=== PATIENT | female | born 1945 | race Caucasian/White ===

== ENCOUNTER 2020-06-05 12:46 | Day surgery (SDC) | payer MEDICARE, SELFPAY ==
--- NOTE | 2020-06-02 14:24 | HO.ANESPROP2 ---
Documented by User: Denia Mendiola 06/02/20 14:28 HPI - Anesthesia Eval Consult details Narrative: 74yo F for Upper Endoscopy with Balloon Dilitation PMFSH Past Medical History Medical History Cholecystectomy planned Chronic gastritis Dysphagia Erosive esophagitis GERD (gastroesophageal reflux disease) Normal colonoscopy Rheumatoid arthritis Urinary bladder incontinence Surgical History Surgical History History of esophagogastroduodenoscopy (EGD) S/P hip replacement Social History Social History Smoking Status: Former smoker Smoking Quit Date: 2013 Advance Directives: No Advance Directives Information Provided: Yes Meds Allergies Allergy/AdvReac Type Severity Reaction Status Date / Time azithromycin [AZITHROMYCIN] Allergy Intermediate RASH Unverified 04/13/20 16:01 Home Medications Medication Instructions Recorded Confirmed Type acetaminophen 500 mg PO QD-QID PRN 06/02/20 06/02/20 History sulfasalazine 1 tab PO DAILY 06/02/20 06/02/20 History Exam Exam Date and Time: June 02, 2020 1424 Documented by User: Rosalio Reeves 06/05/20 13:05 PMFSH Past Medical History Medical History Cholecystectomy planned Chronic gastritis Dysphagia Erosive esophagitis GERD (gastroesophageal reflux disease) Normal colonoscopy Rheumatoid arthritis Urinary bladder incontinence Surgical History Surgical History History of esophagogastroduodenoscopy (EGD) S/P hip replacement Social History Social History Smoking Status: Former smoker Smoking Quit Date: 2013 Advance Directives: No Advance Directives Information Provided: Yes Meds Allergies Allergy/AdvReac Type Severity Reaction Status Date / Time azithromycin [AZITHROMYCIN] Allergy Intermediate RASH Unverified 04/13/20 16:01 Home Medications Medication Instructions Recorded Confirmed Type acetaminophen 500 mg PO QD-QID PRN 06/02/20 06/02/20 History sulfasalazine 1 tab PO DAILY 06/02/20 06/02/20 History Exam Airway Mallampati Class: III TM Dist: >3cm Neck ROM: Full Denture: Upper and Lower Heart: [id number] Lungs: cta b/l Assessment and Plan Assessment Anesthesia Assessment: Anesthesia Plan Discussed, PAT Visit and Chart Reviewed Final Anesthetic Review NPO: Yes ASA Class: III Final Preanesthetic Review: No Changes in Pt Med Stat, Meds/Allgs Chart Reviewed, Consent Obtained/Reviewed and Anes Risks/Benef Reviewed Patient Risk: Low Procedure Risk: Low Assessment/Block/Sedation in SS: Assess/Block/Sedation-SS Anesthetic Plan Anesthetic Plan: MAC: Disposition: Standard PACU
[2020-06-02 14:50] VITALS: BMI 22.7
[2020-06-05 13:02] VITALS: BP 126/71; PULSE 102; RESP 18; TEMP 36.1; O2SAT 98
[2020-06-05] MEDS: Lactated Ringers 1,000 ML 100 ML IVCONT (13:08)
[2020-06-05 14:33] VITALS: BP 126/48; PULSE 91; RESP 20; TEMP 36.5; O2SAT 97
--- NOTE | 2020-06-05 14:39 | PM.OP ---
Brief Operative Note Date of procedure: 06/05/20 Pre-op diagnosis: GERD, Dysphagia, Screening Post-op diagnosis: other (Hiatal hernia, gastritis, Minimal distal esophageal stricture, colon polyp, diverticulosis, internal hemorrhoids) Procedure: EGD with biopsy and Balloon dilation, Colonoscopy to cecum with biopsy Surgeon: Sid Awan Anesthesia: MAC Estimated blood loss (mL): 4.0 Pathology: other (A. Gastric antrum B. EG JUnction at 38cm C.Transverse colon polyp) Condition: stable Disposition: PACU
[2020-06-05 14:48] VITALS: BP 127/50; PULSE 89; RESP 16; O2SAT 97
[2020-06-05 15:00] VITALS: BP 103/53; PULSE 86; RESP 16; O2SAT 95
[2020-06-05 15:21] VITALS: BP 122/64; PULSE 85; RESP 16; O2SAT 95
--- NOTE | 2020-06-05 15:47 | HO.POSTANES ---
Post Anesthesia Evaluation Post Anesthesia Evaluation Vital Signs: Vital Signs Temp Pulse Resp BP Pulse Ox 06/05/20 15:21 97.7 F 85 16 122/64 95 06/05/20 15:00 86 16 103/53 L 95 06/05/20 14:33 97.7 F 91 20 126/48 L 97 06/05/20 13:02 97 F 102 H 18 126/71 98 Anesthesia: Monitored Mental Status: Awake Pain Control: Satisfactory Nausea/Vomiting: None Hydration: Adequate Anesthesia-Related Issues: No Anes. Related Issues
--- NOTE | 2020-06-05 17:11 | OP_ITS ---
SURGEON: Sid Awan MD INDICATIONS: The patient presents for evaluation of gastroesophageal reflux, dysphagia, and colorectal cancer screening. Full consent has been obtained from her for this, including risks of bleeding and perforation. PREOPERATIVE DIAGNOSIS: POSTOPERATIVE DIAGNOSIS: PROCEDURE PERFORMED: ESTIMATED BLOOD LOSS: COMPLICATIONS: ANESTHESIA: Monitored anesthesia care. ASSISTANTS: SPECIMENS: PREOPERATIVE DIAGNOSES: Gastroesophageal reflux, dysphagia, colorectal cancer screening. POSTOPERATIVE DIAGNOSES: Gastroesophageal reflux, dysphagia, colorectal cancer screening, hiatal hernia, gastritis, minimal distal esophageal stricture, colon polyp, diverticulosis and internal hemorrhoids. DESCRIPTION OF PROCEDURE: The patient was placed in the left lateral decubitus position. The Olympus video gastroscope was passed in the posterior oropharynx and upper esophagus under direct vision. The scope was passed slowly into the distal esophagus. The gastroesophageal junction appeared at 38 cm. There was some slight irregularity, but no definitive evidence of Ferreira's esophagus nor esophagitis. With insufflation of air, there appeared to be perhaps a mild fibrotic stricture, but not obstructing at all. The scope was easily entered into the stomach. There was a small hiatal hernia. The scope was advanced to pylorus and duodenum cannulated the descending portion. The duodenum including the bulb appeared normal without mass or ulceration. The scope was withdrawn back into the stomach. The gastric antrum and body had changes of a chronic gastritis with some edema, friability, and erythema. There were no erosions or ulceration. There was good peristalsis. The scope was retroflexed visualizing the proximal stomach carefully which appeared normal, without any sign of mass or ulceration. The scope was straightened. Biopsies were obtained from the gastric antrum. The scope was withdrawn back into the esophagus. Given her symptomatology, I did use a [employer] esophageal balloon to dilate the gastroesophageal junction from 18 mm to 19 mm for 30 seconds each of the recommended pressure. There was some heme noted post dilation. Biopsies were obtained at the EG junction at 38 cm as well. Proximal to that, the esophageal mucosa appeared normal. The scope was withdrawn from the patient. She was turned around for colonoscopy. The digital rectal exam revealed no abnormalities. The Olympus video pediatric colonoscope was entered into the rectum and advanced easily to the cecum. Once in the cecum, I did identify normal-appearing cecal pouch with appendiceal orifice and a normal-appearing ileocecal valve. There was transillumination of light deep in the right lower quadrant. The entire cecum and ileocecal valve appeared normal. The scope was slowly withdrawn assessing all mucosal surfaces carefully. Preparation was excellent. In the transverse colon, was a flat approximately 5 mm polyp, which was biopsied and completely removed with cold biopsy forceps. I did not visualize any other polyps, colitis, nor angiodysplasia. There was a mild amount of sigmoid diverticulosis. In the rectum, scope was retroflexed visualizing small internal hemorrhoids, but no other pathology. The rectal mucosa appeared normal. The scope was straightened out and withdrawn from the patient. She tolerated both procedures well and was returned to the recovery area in stable condition. IMPRESSION: 1. Hiatal hernia, gastroesophageal reflux. 2. Minimal distal esophageal stricture. 3. Gastritis. 4. Colon polyp. 5. Diverticulosis. 6. Internal hemorrhoids. PLAN: The results of biopsies will be checked. Given the minimal findings on the colonoscopy and her age, I do not think she will need any further screening colonoscopies in the future. She will be started on omeprazole 20 mg daily to treat any component of reflux and esophageal spasm contributing to her dysphagia. She was advised to see me in several months for a followup visit. She was advised not to use any aspirin and NSAIDs for 1 week. PROCEDURES PERFORMED: Esophagogastroduodenoscopy with balloon dilation of gastroesophageal junction and biopsies, and colonoscopy to the cecum with biopsy and removal of polyp. MD VALE Noyola/TANK / [id number]
== END 2020-06-05 15:48 | disposition home or self-care (01) ==
PROVIDERS: PCP Internal Medicine Medical Oncology; Visit Provider Internal Medicine
PROC: (CPT 45380; principal; 2020-06-05 14:20)
PROC: 0DJD8ZZ Inspection of Lower Intestinal Tract, Via Natural or Artificial Opening Endoscopic (ICD-10-PCS; CPT 45378; 2020-06-05 14:20)
DX: Z12.11 Encounter for screening for malignant neoplasm of colon (principal); D12.3 Benign neoplasm of transverse colon; K57.30 Diverticulosis of large intestine without perforation or abscess without bleeding; K64.8 Other hemorrhoids; R13.14 Dysphagia, pharyngoesophageal phase; K22.2 Esophageal obstruction; K20.0 Eosinophilic esophagitis; K29.50 Unspecified chronic gastritis without bleeding; B96.81 Helicobacter pylori [H. pylori] as the cause of diseases classified elsewhere; K44.9 Diaphragmatic hernia without obstruction or gangrene; M06.9 Rheumatoid arthritis, unspecified; Z79.899 Other long term (current) drug therapy; Z96.641 Presence of right artificial hip joint; Z87.891 Personal history of nicotine dependence; Z90.49 Acquired absence of other specified parts of digestive tract; Z88.1 Allergy status to other antibiotic agents
CPT/HCPCS: 45380; 43249; 43239; 88305; 88342; C1726

== ENCOUNTER 2020-10-09 08:13 | Outpatient (REF) | payer MEDICARE, SELFPAY ==
[2020-10-09 08:52] LABS: MANUAL DIFF FLAG NO
[2020-10-09 08:58] LABS: Basophils Percent Auto 0.9 % (0-2); Eosinophils Absolute Auto 0.2 X10*3/uL (0.0-0.4); Eosinophils Percent Auto 4.5 % (0-4); Hematocrit 41.9 % (37-47); Hemoglobin 13.4 g/dl (12.0-16.0); Imm Gran Abs Auto 0.01 X10*3/uL (0.00-0.03); Imm Gran Pct Auto 0.2 % (0.0-0.4); Lymphocytes Absolute Auto 1.2 X10*3/uL (1.2-4.9); Lymphocytes Percent Auto 26.8 % (20-40); Mean Corpuscular Hemoglobin 28.8 pg (27.0-33.0); Mean Corpuscular Volume 89.9 fL (80-98); Mean Platelet Volume 9.3 fL (9.4-12.3); Monocytes Absolute Auto 0.3 X10*3/uL (0.1-1.2); Monocytes Percent Auto 5.6 % (2-11); Neutrophils Absolute Auto 2.9 X10*3/uL (2.0-8.3); Platelet Count 247 X10*3/uL (160-400); Red Blood Count 4.66 X10*6/uL (4.20-5.50); White Blood Count 4.6 X10*3/uL (4.8-10.8)
[2020-10-09 09:21] LABS: Cholesterol 180 mg/dL; HDL Cholesterol 60 mg/dL; LDL Cholesterol Calculated 106 mg/dl; Triglycerides 73 mg/dL
[2020-10-09 09:34] LABS: Alanine Aminotransferase 14 U/L (0-31); Albumin Level 4.3 g/dL (3.5-5.0); Alkaline Phosphatase 80 U/L (39-117); Anion Gap 12 (12-20); Aspartate Amino Transferase 16 U/L (5-31); Bilirubin Total 0.9 mg/dL (0.0-1.0); Blood Urea Nitrogen 19 mg/dL (9-16); C Reactive Protein 0.54 mg/dL (< or = 0.50); Calcium 9.5 mg/dL (8.4-10.2); Carbon Dioxide 27 mmol/L (22-29); Chloride 105 mmol/L (96-108); Estimated Glomerular Filt Rate > 60; Glucose Random 103 mg/dL (60-115); Potassium 4.3 mmol/L (3.3-5.1); Sodium 140 mmol/L (135-145); Total Protein 6.9 g/dL (6.5-8.0)
[2020-10-09 10:15] LABS: Erythrocyte Sedimentation Rate 7 MM/HR (0-20)
[2020-10-13 12:46] LABS: Vitamin D 25-OH, D2 <4 ng/mL; Vitamin D 25-OH, D3 32 ng/mL; Vitamin D 25-OH, Total 32 ng/mL (30-100)
== END 2020-10-09 08:14 | disposition home or self-care (01) ==
LOC: HO.LAB 08:13
PROVIDERS: Absent Provider Student in an Organized Health Care Education/Training Program; PCP Internal Medicine Medical Oncology; Visit Provider Internal Medicine Medical Oncology
DX: M05.9 Rheumatoid arthritis with rheumatoid factor, unspecified (principal); M19.90 Unspecified osteoarthritis, unspecified site; D70.9 Neutropenia, unspecified; Z87.898 Personal history of other specified conditions
CPT/HCPCS: 36415; 80053; 80061; 82306; 85025; 85652; 86140

== ENCOUNTER 2020-11-03 14:54 | Outpatient (REF) | payer MEDICARE, SELFPAY ==
[2020-11-03 15:09] LABS: Glucose Urine UA NEG (NEG); Leukocyte Esterase Urine 2+ (NEG); Nitrite Urine POS (NEG); PH 5.5 (5.0-8.0); Specific Gravity - Urine >= 1.030 (1.005-1.025); Urine Blood 1+ (NEG); Urine Ketones NEG (NEG); Urine Protein NEG (NEG-TRACE)
[2020-11-03 15:10] LABS: Appearance Urine CLOUDY; Color Urine YELLOW
[2020-11-03 15:25] LABS: Bacteria Urine 3+ /LPF; WBC Urine TNTC /HPF (0-4)
== END 2020-11-03 14:55 | disposition home or self-care (01) ==
LOC: HO.LNP 14:54
PROVIDERS: Visit Provider Internal Medicine Medical Oncology
DX: M19.90 Unspecified osteoarthritis, unspecified site (principal); R31.9 Hematuria, unspecified
CPT/HCPCS: 81001; 81003; 87086; 87088; 87186

== ENCOUNTER 2020-11-07 08:18 | Outpatient (REF) | payer MEDICARE, SELFPAY ==
--- NOTE | ~2020-11-07 | XR_ITS ---
EXAMINATION: BILATERAL KNEE X-RAY CLINICAL INFORMATION: Rheumatoid arthritis COMPARISON: Previous exam November 2017 TECHNIQUE: 4 views of each knee FINDINGS: Right: The bones are osteopenic. No fracture or dislocation is seen. There are small osteophytes at the patellofemoral joint. Joint spaces are otherwise normal. There is a small joint effusion. Left knee: The bones are osteopenic. No fracture or dislocation is seen. There are small osteophytes at the patellofemoral joint. Joint spaces are otherwise normal. There is a small joint effusion. XR/XR knee LT 3V IMPRESSION: Osteopenia. Small osteophytes at the patellofemoral joint. Bilateral joint effusions.
--- NOTE | ~2020-11-07 | XR_ITS ---
EXAMINATION: BILATERAL KNEE X-RAY CLINICAL INFORMATION: Rheumatoid arthritis COMPARISON: Previous exam November 2017 TECHNIQUE: 4 views of each knee FINDINGS: Right: The bones are osteopenic. No fracture or dislocation is seen. There are small osteophytes at the patellofemoral joint. Joint spaces are otherwise normal. There is a small joint effusion. Left knee: The bones are osteopenic. No fracture or dislocation is seen. There are small osteophytes at the patellofemoral joint. Joint spaces are otherwise normal. There is a small joint effusion. XR/XR knee RT 3V IMPRESSION: Osteopenia. Small osteophytes at the patellofemoral joint. Bilateral joint effusions.
[2020-11-07 09:37] LABS: MANUAL DIFF FLAG NO
[2020-11-07 09:49] LABS: Basophils Percent Auto 0.6 % (0-2); Eosinophils Absolute Auto 0.2 X10*3/uL (0.0-0.4); Eosinophils Percent Auto 3.3 % (0-4); Hematocrit 39.7 % (37-47); Hemoglobin 12.9 g/dl (12.0-16.0); Imm Gran Abs Auto 0.01 X10*3/uL (0.00-0.03); Imm Gran Pct Auto 0.2 % (0.0-0.4); Lymphocytes Absolute Auto 1.1 X10*3/uL (1.2-4.9); Lymphocytes Percent Auto 21.8 % (20-40); Mean Corpuscular HGB Conc 32.5 g/dl (31.0-35.0); Mean Corpuscular Hemoglobin 29.2 pg (27.0-33.0); Mean Corpuscular Volume 89.8 fL (80-98); Mean Platelet Volume 9.4 fL (9.4-12.3); Monocytes Absolute Auto 0.3 X10*3/uL (0.1-1.2); Monocytes Percent Auto 6.2 % (2-11); Neutrophils Absolute Auto 3.5 X10*3/uL (2.0-8.3); Neutrophils Percent Auto 67.9 % (45-73); Platelet Count 246 X10*3/uL (160-400); Red Blood Count 4.42 X10*6/uL (4.20-5.50); White Blood Count 5.1 X10*3/uL (4.8-10.8)
[2020-11-07 10:09] LABS: Alanine Aminotransferase 13 U/L (0-31); Albumin Level 4.2 g/dL (3.5-5.0); Alkaline Phosphatase 82 U/L (39-117); Anion Gap 12 (12-20); Aspartate Amino Transferase 17 U/L (5-31); Bilirubin Total 0.8 mg/dL (0.0-1.0); Blood Urea Nitrogen 19 mg/dL (9-16); Calcium 9.8 mg/dL (8.4-10.2); Carbon Dioxide 26 mmol/L (22-29); Chloride 106 mmol/L (96-108); Estimated Glomerular Filt Rate > 60; Glucose Random 98 mg/dL (60-115); Potassium 4.4 mmol/L (3.3-5.1); Sodium 140 mmol/L (135-145); Total Protein 6.8 g/dL (6.5-8.0)
[2020-11-07 10:54] LABS: Erythrocyte Sedimentation Rate 6 MM/HR (0-20)
== END 2020-11-07 08:19 | disposition home or self-care (01) ==
LOC: HO.LAB 08:18
PROVIDERS: PCP Emergency Medicine; Visit Provider Student in an Organized Health Care Education/Training Program
DX: M05.9 Rheumatoid arthritis with rheumatoid factor, unspecified (principal); M85.80 Other specified disorders of bone density and structure, unspecified site; Z79.899 Other long term (current) drug therapy
CPT/HCPCS: 36415; 73562; 80053; 85025; 85652; 86140; 99212

== ENCOUNTER 2021-02-01 08:22 | Outpatient (REF) | payer MEDICARE, SELFPAY ==
[2021-02-01 08:49] LABS: MANUAL DIFF FLAG NO
[2021-02-01 08:53] LABS: Basophils Percent Auto 0.6 % (0-2); Eosinophils Absolute Auto 0.2 X10*3/uL (0.0-0.4); Eosinophils Percent Auto 4.2 % (0-4); Hematocrit 38.1 % (37-47); Hemoglobin 12.3 g/dl (12.0-16.0); Imm Gran Abs Auto 0.01 X10*3/uL (0.00-0.03); Imm Gran Pct Auto 0.2 % (0.0-0.4); Lymphocytes Absolute Auto 1.2 X10*3/uL (1.2-4.9); Lymphocytes Percent Auto 26.1 % (20-40); Mean Corpuscular HGB Conc 32.3 g/dl (31.0-35.0); Mean Corpuscular Volume 89.9 fL (80-98); Mean Platelet Volume 9.1 fL (9.4-12.3); Monocytes Absolute Auto 0.3 X10*3/uL (0.1-1.2); Monocytes Percent Auto 6.8 % (2-11); Neutrophils Absolute Auto 2.9 X10*3/uL (2.0-8.3); Neutrophils Percent Auto 62.1 % (45-73); Platelet Count 213 X10*3/uL (160-400); Red Blood Count 4.24 X10*6/uL (4.20-5.50); Red Cell Distribution Width 12.8 % (11.0-16.0); White Blood Count 4.7 X10*3/uL (4.8-10.8)
[2021-02-01 09:39] LABS: Alanine Aminotransferase 13 U/L (0-31); Albumin Level 4.1 g/dL (3.5-5.0); Alkaline Phosphatase 79 U/L (39-117); Anion Gap 12 (12-20); Aspartate Amino Transferase 15 U/L (5-31); Bilirubin Total 0.9 mg/dL (0.0-1.0); Blood Urea Nitrogen 14 mg/dL (9-16); C Reactive Protein 0.15 mg/dL (< or = 0.50); Calcium 9.7 mg/dL (8.4-10.2); Carbon Dioxide 26 mmol/L (22-29); Chloride 108 mmol/L (96-108); Estimated Glomerular Filt Rate > 60; Glucose Random 109 mg/dL (60-115); Potassium 4.3 mmol/L (3.3-5.1); Sodium 142 mmol/L (135-145); Total Protein 6.8 g/dL (6.5-8.0)
[2021-02-01 09:50] LABS: Erythrocyte Sedimentation Rate 6 MM/HR (0-20)
== END 2021-02-01 08:23 | disposition home or self-care (01) ==
LOC: HO.LAB 08:22
PROVIDERS: PCP Internal Medicine Medical Oncology; Visit Provider Student in an Organized Health Care Education/Training Program
DX: M05.9 Rheumatoid arthritis with rheumatoid factor, unspecified (principal)
CPT/HCPCS: 36415; 80053; 85025; 85652; 86140

== ENCOUNTER → 2021-02-06 10:45 | Outpatient (BNVA) | payer MEDICARE, SELFPAY | PROVIDERS: PCP Internal Medicine Medical Oncology; Visit Provider Student in an Organized Health Care Education/Training Program | DX: M05.9 Rheumatoid arthritis with rheumatoid factor, unspecified (principal); M85.80 Other specified disorders of bone density and structure, unspecified site | CPT/HCPCS: 99212 ==

== ENCOUNTER 2021-06-04 12:26 | Outpatient (REF) | payer MEDICARE, SELFPAY ==
[2021-06-04 13:35] LABS: MANUAL DIFF FLAG NO
[2021-06-04 14:42] LABS: Basophils Percent Auto 0.7 % (0-2); Eosinophils Absolute Auto 0.3 X10*3/uL (0.0-0.4); Eosinophils Percent Auto 5.1 % (0-4); Hematocrit 41.1 % (37.0-47.0); Hemoglobin 13.2 g/dl (12.0-16.0); Imm Gran Abs Auto 0.01 X10*3/uL (0.00-0.03); Imm Gran Pct Auto 0.2 % (0.0-0.4); Lymphocytes Absolute Auto 1.4 X10*3/uL (1.2-4.9); Lymphocytes Percent Auto 25.7 % (20-40); Mean Corpuscular HGB Conc 32.1 g/dl (31.0-35.0); Mean Corpuscular Hemoglobin 28.4 pg (27.0-33.0); Mean Corpuscular Volume 88.6 fL (80.0-98.0); Mean Platelet Volume 9.5 fL (9.4-12.3); Monocytes Absolute Auto 0.4 X10*3/uL (0.1-1.2); Monocytes Percent Auto 6.4 % (2-11); Neutrophils Absolute Auto 3.4 x10*3/uL (2.0-8.3); Neutrophils Percent Auto 61.9 % (45-73); Platelet Count 226 X10*3/uL (160-400); Red Blood Count 4.64 X10*6/uL (4.20-5.50); Red Cell Distribution Width 13.1 % (11.0-16.0); White Blood Count 5.5 X10*3/uL (4.8-10.8)
[2021-06-04 15:12] LABS: Alanine Aminotransferase 17 U/L (0-31); Albumin Level 4.3 g/dL (3.5-5.0); Alkaline Phosphatase 79 U/L (39-117); Anion Gap 13 (12-20); Aspartate Amino Transferase 17 U/L (5-31); Bilirubin Total 0.9 mg/dL (0.0-1.0); Blood Urea Nitrogen 20 mg/dL (9-16); C Reactive Protein 0.19 mg/dL (< or = 0.50); Calcium 10.2 mg/dL (8.4-10.2); Carbon Dioxide 27 mmol/L (22-29); Chloride 106 mmol/L (96-108); Estimated Glomerular Filt Rate > 60; Glucose Random 94 mg/dL (60-115); Potassium 4.8 mmol/L (3.3-5.1); Sodium 141 mmol/L (135-145); Total Protein 6.9 g/dL (6.5-8.0)
[2021-06-04 15:27] LABS: Erythrocyte Sedimentation Rate 6 MM/HR (0-20)
== END 2021-06-04 12:27 | disposition home or self-care (01) ==
LOC: HO.LAB 12:26
PROVIDERS: Absent Provider Student in an Organized Health Care Education/Training Program; PCP Internal Medicine Medical Oncology; Visit Provider Nurse Practitioner Family
DX: M05.9 Rheumatoid arthritis with rheumatoid factor, unspecified (principal); M85.80 Other specified disorders of bone density and structure, unspecified site
CPT/HCPCS: 36415; 80053; 85025; 85652; 86140; 99212

== ENCOUNTER → 2021-10-25 10:31 | Outpatient (BNVA) | payer MEDICARE, SELFPAY | PROVIDERS: PCP Internal Medicine Medical Oncology; Visit Provider Nurse Practitioner Family | DX: M05.9 Rheumatoid arthritis with rheumatoid factor, unspecified (principal); M85.80 Other specified disorders of bone density and structure, unspecified site | CPT/HCPCS: 99212 ==

== ENCOUNTER 2021-10-31 12:36 | Outpatient (REF) | payer MEDICARE, SELFPAY ==
[2021-10-31 12:56] LABS: MANUAL DIFF FLAG NO
[2021-10-31 13:06] LABS: Basophils Percent Auto 0.4 % (0-2); Eosinophils Absolute Auto 0.2 X10*3/uL (0.0-0.4); Eosinophils Percent Auto 3.3 % (0-4); Hematocrit 39.4 % (37.0-47.0); Hemoglobin 12.7 g/dl (12.0-16.0); Imm Gran Abs Auto 0.02 X10*3/uL (0.00-0.03); Imm Gran Pct Auto 0.4 % (0.0-0.4); Lymphocytes Absolute Auto 1.1 X10*3/uL (1.2-4.9); Lymphocytes Percent Auto 22.4 % (20-40); Mean Corpuscular HGB Conc 32.2 g/dl (31.0-35.0); Mean Corpuscular Hemoglobin 28.8 pg (27.0-33.0); Mean Corpuscular Volume 89.3 fL (80.0-98.0); Mean Platelet Volume 9.5 fL (9.4-12.3); Monocytes Absolute Auto 0.3 X10*3/uL (0.1-1.2); Monocytes Percent Auto 6.1 % (2-11); Neutrophils Absolute Auto 3.2 x10*3/uL (2.0-8.3); Neutrophils Percent Auto 67.4 % (45-73); Platelet Count 213 X10*3/uL (160-400); Red Blood Count 4.41 X10*6/uL (4.20-5.50); Red Cell Distribution Width 12.7 % (11.0-16.0); White Blood Count 4.8 X10*3/uL (4.8-10.8)
[2021-10-31 13:28] LABS: Alanine Aminotransferase 11 U/L (0-31); Albumin Level 4.2 g/dL (3.5-5.0); Alkaline Phosphatase 72 U/L (39-117); Anion Gap 11 (12-20); Aspartate Amino Transferase 13 U/L (5-31); Bilirubin Total 0.9 mg/dL (0.0-1.0); Blood Urea Nitrogen 17 mg/dL (9-16); C Reactive Protein 0.34 mg/dL (< or = 0.50); Calcium 9.8 mg/dL (8.4-10.2); Carbon Dioxide 25 mmol/L (22-29); Chloride 106 mmol/L (96-108); Estimated Glomerular Filt Rate 58; Glucose Random 115 mg/dL (60-115); Potassium 4.2 mmol/L (3.3-5.1); Sodium 138 mmol/L (135-145); Total Protein 6.8 g/dL (6.5-8.0)
[2021-10-31 13:47] LABS: Erythrocyte Sedimentation Rate 7 MM/HR (0-20)
== END 2021-10-31 12:37 | disposition home or self-care (01) ==
LOC: HO.LAB 12:36
PROVIDERS: PCP Internal Medicine Medical Oncology; Visit Provider Nurse Practitioner Family
DX: M05.9 Rheumatoid arthritis with rheumatoid factor, unspecified (principal)
CPT/HCPCS: 36415; 80053; 82306; 85025; 85652; 86140

== ENCOUNTER 2021-11-12 13:13 | Outpatient (REF) | payer MEDICARE, SELFPAY ==
[2021-11-12 13:25] LABS: MANUAL DIFF FLAG NO
[2021-11-12 14:08] LABS: Basophils Percent Auto 0.6 % (0-2); Eosinophils Absolute Auto 0.3 X10*3/uL (0.0-0.4); Eosinophils Percent Auto 4.9 % (0-4); Hematocrit 40.4 % (37.0-47.0); Hemoglobin 12.9 g/dl (12.0-16.0); Imm Gran Abs Auto 0.01 X10*3/uL (0.00-0.03); Imm Gran Pct Auto 0.2 % (0.0-0.4); Lymphocytes Absolute Auto 1.2 X10*3/uL (1.2-4.9); Lymphocytes Percent Auto 23.9 % (20-40); Mean Corpuscular HGB Conc 31.9 g/dl (31.0-35.0); Mean Corpuscular Hemoglobin 28.8 pg (27.0-33.0); Mean Corpuscular Volume 90.2 fL (80.0-98.0); Mean Platelet Volume 9.3 fL (9.4-12.3); Monocytes Absolute Auto 0.3 X10*3/uL (0.1-1.2); Monocytes Percent Auto 4.9 % (2-11); Neutrophils Absolute Auto 3.3 x10*3/uL (2.0-8.3); Neutrophils Percent Auto 65.5 % (45-73); Platelet Count 264 X10*3/uL (160-400); Red Blood Count 4.48 X10*6/uL (4.20-5.50); Red Cell Distribution Width 12.9 % (11.0-16.0); White Blood Count 5.1 X10*3/uL (4.8-10.8)
[2021-11-12 14:33] LABS: Alanine Aminotransferase 15 U/L (0-31); Albumin Level 4.2 g/dL (3.5-5.0); Alkaline Phosphatase 80 U/L (39-117); Anion Gap 13 (12-20); Aspartate Amino Transferase 16 U/L (5-31); Bilirubin Total 0.5 mg/dL (0.0-1.0); Blood Urea Nitrogen 16 mg/dL (9-16); Calcium 10.1 mg/dL (8.4-10.2); Carbon Dioxide 26 mmol/L (22-29); Chloride 106 mmol/L (96-108); Cholesterol 185 mg/dL; Estimated Glomerular Filt Rate > 60; Glucose Random 96 mg/dL (60-115); HDL Cholesterol 55 mg/dL; LDL Cholesterol Calculated 101 mg/dl; Potassium 4.1 mmol/L (3.3-5.1); Sodium 141 mmol/L (135-145); Total Protein 6.9 g/dL (6.5-8.0); Triglycerides 148 mg/dL
[2021-11-12 14:51] LABS: Erythrocyte Sedimentation Rate 9 MM/HR (0-20)
== END 2021-11-12 13:14 | disposition home or self-care (01) ==
LOC: HO.LAB 13:13
PROVIDERS: PCP Internal Medicine Medical Oncology; Visit Provider Internal Medicine Medical Oncology
DX: M05.9 Rheumatoid arthritis with rheumatoid factor, unspecified (principal); D70.9 Neutropenia, unspecified; Z87.898 Personal history of other specified conditions
CPT/HCPCS: 36415; 80053; 80061; 85025; 85652

== ENCOUNTER → 2022-01-24 10:29 | Outpatient (BNVA) | payer MEDICARE, SELFPAY | PROVIDERS: PCP Internal Medicine Medical Oncology; Visit Provider Nurse Practitioner Family | DX: M05.9 Rheumatoid arthritis with rheumatoid factor, unspecified (principal); M85.80 Other specified disorders of bone density and structure, unspecified site; Z79.899 Other long term (current) drug therapy | CPT/HCPCS: 99212 ==

== ENCOUNTER → 2022-05-31 13:27 | Outpatient (BNVA) | payer MEDICARE, SELFPAY | PROVIDERS: PCP Internal Medicine Medical Oncology; Referring Provider Internal Medicine Medical Oncology; Visit Provider Nurse Practitioner Family | DX: M05.9 Rheumatoid arthritis with rheumatoid factor, unspecified (principal); M85.80 Other specified disorders of bone density and structure, unspecified site; Z79.899 Other long term (current) drug therapy | CPT/HCPCS: 99212 ==

== ENCOUNTER 2022-06-03 13:25 | Outpatient (REF) | payer MEDICARE, SELFPAY ==
[2022-06-03 13:38] LABS: MANUAL DIFF FLAG NO
[2022-06-03 14:15] LABS: Basophils Percent Auto 0.7 % (0-2); Eosinophils Absolute Auto 0.3 X10*3/uL (0.0-0.4); Eosinophils Percent Auto 4.6 % (0-4); Hematocrit 37.7 % (37.0-47.0); Hemoglobin 12.2 g/dl (12.0-16.0); Imm Gran Abs Auto 0.02 X10*3/uL (0.00-0.03); Imm Gran Pct Auto 0.4 % (0.0-0.4); Lymphocytes Absolute Auto 1.4 X10*3/uL (1.2-4.9); Lymphocytes Percent Auto 24.9 % (20-40); Mean Corpuscular HGB Conc 32.4 g/dl (31.0-35.0); Mean Corpuscular Volume 89.8 fL (80.0-98.0); Mean Platelet Volume 9.7 fL (9.4-12.3); Monocytes Absolute Auto 0.3 X10*3/uL (0.1-1.2); Monocytes Percent Auto 4.9 % (2-11); Neutrophils Absolute Auto 3.7 x10*3/uL (2.0-8.3); Neutrophils Percent Auto 64.5 % (45-73); Platelet Count 234 X10*3/uL (160-400); Red Cell Distribution Width 13.1 % (11.0-16.0); White Blood Count 5.7 X10*3/uL (4.8-10.8)
[2022-06-03 14:43] LABS: Alanine Aminotransferase 13 U/L (0-31); Aspartate Amino Transferase 15 U/L (5-31); C Reactive Protein 0.13 mg/dL (< or = 0.50); Estimated Glomerular Filt Rate > 60
[2022-06-03 15:05] LABS: Erythrocyte Sedimentation Rate 6 MM/HR (0-20)
== END 2022-06-03 13:26 | disposition home or self-care (01) ==
LOC: HO.LAB 13:25
PROVIDERS: PCP Internal Medicine Medical Oncology; Visit Provider Nurse Practitioner Family
DX: M05.9 Rheumatoid arthritis with rheumatoid factor, unspecified (principal); M85.80 Other specified disorders of bone density and structure, unspecified site; Z79.899 Other long term (current) drug therapy
CPT/HCPCS: 36415; 82306; 82565; 84450; 84460; 85025; 85652; 86140

== ENCOUNTER 2022-06-04 14:26 | Outpatient (REF) | payer MEDICARE, SELFPAY ==
--- NOTE | ~2022-06-04 | MM_ITS ---
EXAMINATION: BONE DENSITOMETRY CLINICAL INDICATION: Osteopenia. COMPARISON: Previous BD dated 01/18/2020 and baseline BD dated 05/31/2014. TECHNIQUE: Using a Hydro-Run DXA System (software version: 13.1) manufactured by [employer], dual-energy x-ray absorptiometry was performed of the lumbar spine and left hip. The images are of good technical quality. Summary results are attached. FINDINGS: AP SPINE L1-L4: Current: BMD 1.312 g/cm2, Z-score 2.8, T-score 1.1, normal, 3.4% increase from previous, 5.9% increase from baseline (<5% change is not significant). Prior: BMD 1.269 g/cm2. Baseline: BMD 1.239 g/cm2. LEFT FEMUR, NECK: Current: BMD 0.881 g/cm2, Z-score 0.8, T-score -1.1, osteopenia. Prior: BMD 0.910 g/cm2. Baseline: BMD 0.988 g/cm2. LEFT FEMUR, TOTAL: Current: BMD 0.910 g/cm2, Z-score 0.9, T-score -0.8, normal, 3.2% decrease from previous, 7.6% decrease from baseline (<5% change is not significant). Prior: BMD 0.940 g/cm2. Baseline: BMD 0.985 g/cm2. IDENTIFIED RISK FACTORS: Menopause, rheumatoid arthritis. HISTORY OF FRACTURE: None listed. MEDICATIONS: Vitamin D. MM/XR DEXA axial skeleton IMPRESSION: 1. DIAGNOSIS: Osteopenia based on the lowest T-score value of -1.1 in the femoral neck applying World Health Organization criteria. 2. 10-YEAR FRACTURE RISK PREDICTION, FRAX: Major osteoporotic fracture (clinical spine, forearm, hip or shoulder) 13.1%. Hip fracture 2.5%. 3. Treatment Recommendations: NOF guidelines recommend consideration for treatment in postmenopausal women and men age 50 and older presenting with the following: -A hip or vertebral (clinical or morphometric) fracture. -T-score less than or equal to -2.5 at the femoral neck or spine after appropriate evaluation to exclude secondary causes. -Low bone mass at the hip or spine and a 10-year fracture probability by FRAX of greater than or equal to 3% for hip fracture or greater than or equal to 20% for major osteoporotic fracture based on the [place] adapted WHO algorithm. 4. Other Recommendations: All treatment decisions require clinical judgment and consideration of individual patient factors, including patient preferences, comorbidities, previous drug use, risk factors not captured in the FRAX model (e.g. frailty, falls, vitamin D deficiency, increased bone turnover, interval significant decline in bone density) and possible under or overestimation of fracture risk by FRAX. Additional medical evaluation for secondary cause of low bone mineral density may be appropriate. FUTURE SCAN RECOMMENDATION: People with diagnosed cases of osteoporosis or at high risk for fracture should have regular bone mineral density tests. For patients eligible for Medicare, routine testing is allowed once every 2 years. The testing frequency can be increased to one year for patients who have rapidly progressing disease, those who are receiving or discontinuing medical therapy to restore bone mass, or have additional risk factors.
== END 2022-06-04 14:27 | disposition home or self-care (01) ==
LOC: HO.MAMMO 14:26
PROVIDERS: PCP Internal Medicine Medical Oncology; Visit Provider Nurse Practitioner Family
DX: Z13.820 Encounter for screening for osteoporosis (principal); M85.80 Other specified disorders of bone density and structure, unspecified site; M06.9 Rheumatoid arthritis, unspecified; Z78.0 Asymptomatic menopausal state
CPT/HCPCS: 77080

== ENCOUNTER 2022-09-30 12:47 | Outpatient (REF) | payer MEDICARE, SELFPAY ==
[2022-10-02 10:24] LABS: Lymphocytes Synovial Fluid 6 %; Monocytes Synovial Fluid 10 %; Neutrophils Synovial Fluid 84 %; Source Synovial Fluid LEFT KNEE
[2022-10-02 10:25] LABS: BF Shift QC OK YES
== END 2022-09-30 12:48 | disposition home or self-care (01) ==
LOC: CF 12:47
PROVIDERS: PCP Internal Medicine Medical Oncology; Visit Provider Nurse Practitioner Family
DX: M25.562 Pain in left knee (principal); M25.462 Effusion, left knee; M05.9 Rheumatoid arthritis with rheumatoid factor, unspecified; M85.80 Other specified disorders of bone density and structure, unspecified site; C50.911 Malignant neoplasm of unspecified site of right female breast; E55.9 Vitamin D deficiency, unspecified; Z79.899 Other long term (current) drug therapy; Z78.0 Asymptomatic menopausal state
CPT/HCPCS: 20610; 87070; 87073; 87205; 89051; 89060; 99212

== ENCOUNTER 2022-10-03 09:25 | Outpatient (REF) | payer MEDICARE, SELFPAY ==
--- NOTE | ~2022-10-03 | XR_ITS ---
EXAMINATION: XR KNEE, LEFT CLINICAL INFORMATION: Pain COMPARISON: 11/07/2020 TECHNIQUE: Four views of the left knee. FINDINGS: No acute fracture or dislocation. There is narrowing of the patellofemoral joint. Large suprapatellar effusion and diffuse soft tissue swelling is noted. XR/XR knee LT 3V IMPRESSION: No acute fracture or dislocation. Large suprapatellar effusion and diffuse soft tissue swelling.
[2022-10-03 09:43] LABS: MANUAL DIFF FLAG NO
[2022-10-03 09:58] LABS: Basophils Percent Auto 0.4 % (0-2); Eosinophils Absolute Auto 0.1 X10*3/uL (0.0-0.4); Eosinophils Percent Auto 1.8 % (0-4); Hemoglobin 12.9 g/dl (12.0-16.0); Imm Gran Abs Auto 0.02 X10*3/uL (0.00-0.03); Imm Gran Pct Auto 0.4 % (0.0-0.4); Lymphocytes Absolute Auto 1.1 X10*3/uL (1.2-4.9); Lymphocytes Percent Auto 19.4 % (20-40); Mean Corpuscular HGB Conc 32.3 g/dl (31.0-35.0); Mean Corpuscular Hemoglobin 28.6 pg (27.0-33.0); Mean Corpuscular Volume 88.7 fL (80.0-98.0); Mean Platelet Volume 9.1 fL (9.4-12.3); Monocytes Absolute Auto 0.2 X10*3/uL (0.1-1.2); Monocytes Percent Auto 3.9 % (2-11); Neutrophils Absolute Auto 4.2 x10*3/uL (2.0-8.3); Neutrophils Percent Auto 74.1 % (45-73); Platelet Count 273 X10*3/uL (160-400); Red Blood Count 4.51 X10*6/uL (4.20-5.50); Red Cell Distribution Width 12.9 % (11.0-16.0); White Blood Count 5.7 X10*3/uL (4.8-10.8)
[2022-10-03 10:35] LABS: Erythrocyte Sedimentation Rate 13 MM/HR (0-20)
[2022-10-03 10:42] LABS: Alanine Aminotransferase 7 U/L (0-31); Albumin Level 4.3 g/dL (3.5-5.0); Alkaline Phosphatase 69 U/L (39-117); Anion Gap 13 (12-20); Aspartate Amino Transferase 12 U/L (5-31); Bilirubin Total 1.1 mg/dL (0.0-1.0); Blood Urea Nitrogen 16 mg/dL (9-16); C Reactive Protein 1.06 mg/dL (< or = 0.50); Calcium 9.7 mg/dL (8.4-10.2); Carbon Dioxide 26 mmol/L (22-29); Chloride 106 mmol/L (96-108); Estimated Glomerular Filt Rate > 60; Glucose Random 108 mg/dL (60-115); Potassium 4.5 mmol/L (3.3-5.1); Sodium 140 mmol/L (135-145); Total Protein 7.4 g/dL (6.5-8.0)
[2022-10-03 10:50] LABS: Vitamin D 25-OH Total 43.7 ng/mL (>30)
[2022-10-05 06:39] LABS: Lyme Blot 1.62 index
[2022-10-05 15:24] LABS: Lyme Abs Screen POSITIVE
[2022-10-08 15:08] LABS: 18 KD (IgG) Band NON-REACTIVE; 23 KD (IgG) Band NON-REACTIVE; 23 KD (IgM) Band NON-REACTIVE; 28 KD (IgG) Band NON-REACTIVE; 30 KD (IgG) Band NON-REACTIVE; 39 KD (IgM) Band NON-REACTIVE; 39KD (IgG) Band REACTIVE; 41 KD (IgM) Band REACTIVE; 41KD (IgG) Band NON-REACTIVE; 45 KD (IgG) Band NON-REACTIVE; 58 KD (IgG) Band REACTIVE; 66 KD (IgG) Band NON-REACTIVE; 93 KD (IgG) Band REACTIVE; Lyme IgG Blot Interp NEGATIVE (NEGATIVE); Lyme IgM Blot Interp NEGATIVE (NEGATIVE)
== END 2022-10-03 09:26 | disposition home or self-care (01) ==
LOC: HO.LAB 09:25
PROVIDERS: PCP Internal Medicine Medical Oncology; Visit Provider Nurse Practitioner Family
DX: M05.9 Rheumatoid arthritis with rheumatoid factor, unspecified (principal); M25.462 Effusion, left knee; E55.9 Vitamin D deficiency, unspecified; M25.562 Pain in left knee; Z79.899 Other long term (current) drug therapy
CPT/HCPCS: 36415; 73562; 80053; 82306; 85025; 85652; 86140; 86617; 86618

== ENCOUNTER 2022-11-13 08:20 | Outpatient (REF) | payer MEDICARE, SELFPAY ==
[2022-11-13 08:42] LABS: MANUAL DIFF FLAG NO
[2022-11-13 09:19] LABS: Basophils Percent Auto 0.7 % (0-2); Eosinophils Absolute Auto 0.2 X10*3/uL (0.0-0.4); Eosinophils Percent Auto 3.1 % (0-4); Hemoglobin 12.5 g/dl (12.0-16.0); Imm Gran Abs Auto 0.02 X10*3/uL (0.00-0.03); Imm Gran Pct Auto 0.3 % (0.0-0.4); Lymphocytes Absolute Auto 1.4 X10*3/uL (1.2-4.9); Lymphocytes Percent Auto 23.1 % (20-40); Mean Corpuscular HGB Conc 31.3 g/dl (31.0-35.0); Mean Corpuscular Hemoglobin 28.6 pg (27.0-33.0); Mean Corpuscular Volume 91.5 fL (80.0-98.0); Mean Platelet Volume 9.3 fL (9.4-12.3); Monocytes Absolute Auto 0.3 X10*3/uL (0.1-1.2); Neutrophils Absolute Auto 4.2 x10*3/uL (2.0-8.3); Neutrophils Percent Auto 67.8 % (45-73); Platelet Count 263 X10*3/uL (160-400); Red Blood Count 4.37 X10*6/uL (4.20-5.50); Red Cell Distribution Width 13.6 % (11.0-16.0); White Blood Count 6.1 X10*3/uL (4.8-10.8)
[2022-11-13 09:53] LABS: Alanine Aminotransferase 12 U/L (0-31); Albumin Level 4.2 g/dL (3.5-5.0); Alkaline Phosphatase 69 U/L (39-117); Anion Gap 12 (12-20); Aspartate Amino Transferase 16 U/L (5-31); Bilirubin Total 1.1 mg/dL (0.0-1.0); Blood Urea Nitrogen 14 mg/dL (9-16); Calcium 9.9 mg/dL (8.4-10.2); Carbon Dioxide 27 mmol/L (22-29); Chloride 107 mmol/L (96-108); Cholesterol 194 mg/dL; Estimated Glomerular Filt Rate > 60; Glucose Fasting 97 mg/dL (60-99); HDL Cholesterol 60 mg/dL; LDL Cholesterol Calculated 117 mg/dl; Potassium 4.5 mmol/L (3.3-5.1); Sodium 141 mmol/L (135-145); Total Protein 6.8 g/dL (6.5-8.0); Triglycerides 87 mg/dL
[2022-11-13 10:10] LABS: Vitamin D 25-OH Total 64.4 ng/mL (>30)
== END 2022-11-13 08:21 | disposition home or self-care (01) ==
LOC: HO.LAB 08:20
PROVIDERS: PCP Internal Medicine Medical Oncology; Visit Provider Internal Medicine Medical Oncology
DX: R63.4 Abnormal weight loss (principal); M19.90 Unspecified osteoarthritis, unspecified site; D70.9 Neutropenia, unspecified; E78.5 Hyperlipidemia, unspecified; E53.8 Deficiency of other specified B group vitamins
CPT/HCPCS: 36415; 80053; 80061; 82306; 85025

== ENCOUNTER → 2022-12-17 13:19 | Outpatient (BNVA) | payer MEDICARE, SELFPAY | PROVIDERS: PCP Internal Medicine Medical Oncology; Visit Provider Nurse Practitioner Family | DX: M05.9 Rheumatoid arthritis with rheumatoid factor, unspecified (principal); M25.462 Effusion, left knee; M85.80 Other specified disorders of bone density and structure, unspecified site; C50.911 Malignant neoplasm of unspecified site of right female breast; Z79.811 Long term (current) use of aromatase inhibitors; Z79.899 Other long term (current) drug therapy | CPT/HCPCS: 99212 ==

== ENCOUNTER → 2023-01-27 13:49 | Outpatient (BNVA) | payer MEDICARE, SELFPAY | PROVIDERS: PCP Internal Medicine Medical Oncology; Visit Provider Internal Medicine Rheumatology | DX: M25.462 Effusion, left knee (principal); M05.9 Rheumatoid arthritis with rheumatoid factor, unspecified | CPT/HCPCS: 20610; 87070; 87073; 87205; 89051; 89060; 99212 ==

== ENCOUNTER 2023-01-27 16:31 | Outpatient (REF) | payer MEDICARE, SELFPAY ==
[2023-01-27 21:22] LABS: MN% 26.6 %; PMN% 73.4 %
[2023-01-27 21:25] LABS: WBC Synovial Fluid 15.605 X10*3/uL
[2023-01-27 21:26] LABS: RBC Synovial Fluid 0.003 X10*6/uL
[2023-01-27 21:37] LABS: BF Shift QC OK YES; Lymphocytes Synovial Fluid 4 %; Man Diluent Bkgrd OK YES; Monocytes Synovial Fluid 13 %; Neutrophils Synovial Fluid 80 %; Other Cells Synovial Fluid 3
[2023-01-27 21:38] LABS: Source Synovial Fluid LEFT KNEE
== END 2023-01-27 16:32 | disposition home or self-care (01) ==
LOC: HO.LNP 16:31
PROVIDERS: Visit Provider Internal Medicine Rheumatology
DX: Z13.89 Encounter for screening for other disorder (principal)
CPT/HCPCS: 87070; 87073; 87205; 89051; 89060; 99212

== ENCOUNTER 2023-02-23 14:30 | Emergency (ER) | payer MEDICARE, SELFPAY ==
--- NOTE | ~2023-02-23 | XR_ITS ---
EXAMINATION: XR FEMUR, RIGHT CLINICAL INFORMATION: Fall COMPARISON: None available. TECHNIQUE: AP and lateral views of the right femur were obtained. FINDINGS: Hip prosthesis. No evidence for an acute fracture or dislocation. XR/XR femur RT 2V IMPRESSION: No acute bony finding. No fracture is seen
--- NOTE | ~2023-02-23 | XR_ITS ---
EXAMINATION: XR PELVIS CLINICAL INFORMATION: Status post fall COMPARISON: Femur film same day no previous are available to compare at this time TECHNIQUE: AP view of the pelvis. FINDINGS: Small bony density emanating off the greater trochanter. This may well be the patient's baseline status post hip replacement but avulsion cannot be completely excluded. No convincing evidence of abnormal soft tissue adjacent to suggest hematoma. Therefore this may well be the patient's baseline XR/XR pelvis 1-2V IMPRESSION: As described above bony density adjacent to the greater trochanter inferiorly may well represent the patient's baseline however given the history of trauma small avulsion cannot be excluded
[2023-02-23 14:40] VITALS: BP 147/70; PULSE 127; PULSE 96; RESP 18; O2SAT 93; O2SAT 95; BMI 22.6
[2023-02-23 14:43] VITALS: BP 141/72; PULSE 96; RESP 18
--- NOTE | 2023-02-23 14:45 | PC.NURSE ---
Alert and oriented. arrived via ems from home after falling of a chair last night while trying to clean the top of the fridge. States no pain at rest but is having pain in her right leg/hip area. States fell because door of fridge opened causing her to fall back. states hip replacement in right hip 10 years ago. Denies hitting head. Has been walking using crutch since last night. No external rotating or shortening of leg observed.
[2023-02-23 15:51] VITALS: BP 135/67; PULSE 90; RESP 16; TEMP 36.8; O2SAT 94
--- NOTE | 2023-02-23 16:14 | ED_ITS ---
HPI - Fall General Chief Complaint: Fall Stated Complaint: R LEG PAIN S/P FALL T-1 PER EMS Time Seen by Provider: 02/23/23 16:10 Source: patient Mode of arrival: ambulatory Limitations: no limitations History of Present Illness HPI Narrative: Patient apparently fell yesterday 7 PM while standing on the chair trying to clean off the top of the Fridge landed on her right side of the body no head injury no loss of conscious patient has R hip replacement 10 years ago noticed pain only when she stands and ambulates no back pain Related Data Home Medications Medication Instructions Recorded Confirmed acetaminophen 500 mg PO QD-QID PRN Pain 06/02/20 01/27/23 cholecalciferol (vitamin D3) 25 25 mcg PO DAILY 05/31/22 01/27/23 mcg (1,000 unit) capsule anastrozole 1 mg tablet 1 mg PO DAILY 09/30/22 01/27/23 ibuprofen 200 mg tablet 200 mg PO Q6H PRN 09/30/22 01/27/23 Previous Rx's Medication Instructions Recorded sulfasalazine 500 mg tablet See Rx Instructions .Route 01/27/23 .COMPLEX #120 tabs tramadol 50 mg tablet 50 mg PO Q6H PRN pain #20 tabs 02/23/23 Allergies Allergy/AdvReac Type Severity Reaction Status Date / Time azithromycin [AZITHROMYCIN] Allergy Intermediate RASH Verified 01/27/23 14:18 Review of Systems Review of Systems: Yes all other systems are reviewed and are negative COUNT INCLUDES THE [facility] Past Medical History Medical History Breast cancer, right (~07/2022) Cholecystectomy planned Chronic gastritis Dysphagia Erosive esophagitis GERD (gastroesophageal reflux disease) Normal colonoscopy Osteopenia after menopause Rheumatoid arthritis Seropositive rheumatoid arthritis Urinary bladder incontinence Surgical History History of esophagogastroduodenoscopy (EGD) S/P hip replacement Social History Social History Household Members: Spouse Alcohol intake: never Patient Tobacco Use Status: Former Tobacco user Tobacco use type: Cigarette Years Smoked: quit 11 years ago Smoked in Last 30 Days: No e-Cigarette/Vaping Use: Never Used Use of substances other than those prescribed or required for medical reasons: No Advance Directives: No Advance Directives Information Provided: No Current occupational status: 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 Oriented X3. No acute distress. Eyes: PERRLA, No Nystagmus ENT: Pharynx normal. Oral Mucosa moist atraumatic normocephalic Neck: Normal inspection. Neck supple. CVS: Normal heart rate and rhythm. Pulses normal. Respiratory: No respiratory distress. Equal air entry bilateral, no wheezing/rales/rhonchi Abdomen: Soft and nontender. Bowel sounds are present, no mass palpable, no CVA tenderness Skin: Skin warm and dry. Normal skin color. Normal skin turgor. Extremities: No lower extremity edema. No calf tenderness slight tenderness at midshaft of the femur no deformity neurovascular intact Neuro: Oriented X 3. No motor deficit. No sensory deficit.No cerebellar signs , cranial nerves II-XII intact Medications Administered Discontinued Medications Generic Name Dose Route Start Last Admin Trade Name Freq PRN Reason Stop Dose Admin Oxycodone HCl 5 mg 02/23/23 19:06 02/23/23 19:44 Oxycodone Hcl Immed Release 5 Mg Tablet PO 02/23/23 19:07 5 mg ONCE ONE Administration Medical Decision Making Medical Decision Making [facility] Narrative: Patient with status post fall no clear-cut fracture seen in the x-ray, patient able to ambulate in the ER discharge patient home on tramadol follow-up with PCP/ortho Discharge Plan Discharge Clinical Impression: Contusion of hip, right Patient Disposition: Home, Self-Care Instructions: Hip Contusion (ED) Additional Instructions: Your x-rays negative for any acute fracture Take pain medication as prescribed Follow-up with orthopedics/PCP if pain continues or gets worse Prescriptions: New tramadol 50 mg tablet 50 mg PO Q6H PRN (Reason: pain) Qty: 20 0RF No Action acetaminophen 500 mg PO QD-QID PRN (Reason: Pain) cholecalciferol (vitamin D3) 25 mcg (1,000 unit) capsule 25 mcg PO DAILY anastrozole 1 mg tablet 1 mg PO DAILY ibuprofen 200 mg tablet 200 mg PO Q6H PRN sulfasalazine 500 mg tablet See Rx Instructions .ROUTE .COMPLEX Qty: 120 3RF Rx Instructions: Take 1 tab (500mg) po BID x 7 days, then Take 2 tabs (1000mg) po in the am and 1 tab (500mg) po in the pm x 7 days, then Take 2 tabs (1000mg) po BID thereafter. Interventions: ED Discharge Assessment Last Done: 02/23/23 20:02 Discharge Date/Time: 02/23/23 20:03
[2023-02-23 16:29] VITALS: BP 135/113; PULSE 120; RESP 18
[2023-02-23 18:47] VITALS: BP 130/63; PULSE 88; RESP 18; O2SAT 94
[2023-02-23] MEDS: oxyCODONE HCl Immed Release 5 MG TABLET PO (19:44)
== END 2023-02-23 20:03 | disposition home or self-care (01) ==
PROVIDERS: Emergency Provider Internal Medicine
DX: S70.01XA Contusion of right hip, initial encounter (principal); M79.604 Pain in right leg; R51.9 Headache, unspecified; W01.10XA Fall on same level from slipping, tripping and stumbling with subsequent striking against unspecified object, initial encounter; Y93.9 Activity, unspecified; Y92.009 Unspecified place in unspecified non-institutional (private) residence as the place of occurrence of the external cause; Y99.9 Unspecified external cause status; Z79.899 Other long term (current) drug therapy
CPT/HCPCS: 72170; 73552; 99284

== ENCOUNTER 2023-04-28 12:55 | Outpatient (AMB) | payer MEDICARE, SELFPAY ==
[2023-04-28 12:57] VITALS: BP 124/72; PULSE 91; TEMP 36.6; O2SAT 97; BMI 21.2
--- NOTE | 2023-04-28 12:57 | MHC.OFFVIS ---
Intake Vital Signs 04/28/23 12:57 Height 5 ft 6 in Weight 131 lb 9.855 oz BMI 21.2 BP 124/72 Blood Pressure Location Rt brachial Position Sitting Pulse 91 Pulse Source Pulse Oximeter Temp 97.9 F Temp Source Skin Pulse Oximetry (%) 97 Intake Visit Reasons: Rheumatoid Arthritis Intake Note: Pt seen today for RA follow up. C/o bl wrist pain that started after infusion. Reports she currently takes sulfasalazine 500mg 2 tabs in the am and 1 tab in the pm. Gerentological Physiotherapist Required: No Accompanied by: Self / Same As Patient Allergies azithromycin [AZITHROMYCIN] Allergy (Intermediate, Verified 04/28/23 12:59) RASH HPI HPI Comments History of Present Illness Details The patient presents with complaints of pain at the base of the thumbs bilaterally. She has known osteoarthritis in that area and is also on sulfasalazine 500 mg 3 times a day for seropositive rheumatoid arthritis. The plan had been to push her up to 4 tablets a day but she did not seem to remember that. She had been on methotrexate, the chart indicates, back in 2018. She stopped the because of urinary symptoms. In that year she also received leflunomide later that year but that was stopped because of LFT elevations. She has been on the sulfasalazine now for about 3 years. She also was found to have breast cancer this year and put on anastrozole. Because of its risk for osteoporosis she was given a dose of zoledronic acid about 2 weeks ago. This was followed the next day and since then with increased pain in the wrists and the base of the thumbs bilaterally. She thinks she might be a bit better this week. She was told to stop the anastrozole for a while. The right knee is a bit swollen but not painful. The left knee had been injected back in January with some improvement. [facility] Medical History (Updated 04/28/23 @ 20:03 by Vega Jesus MD) Breast cancer, right (~07/2022) Osteopenia after menopause Seropositive rheumatoid arthritis Cholecystectomy planned Urinary bladder incontinence Chronic gastritis Normal colonoscopy GERD (gastroesophageal reflux disease) Erosive esophagitis Dysphagia Rheumatoid arthritis Surgical History History of esophagogastroduodenoscopy (EGD) S/P hip replacement Social History (Reviewed 04/28/23 @ 13:07 by ROGER Christina Household Members: Spouse Alcohol intake: never Patient Tobacco Use Status: Former Tobacco user Tobacco use type: Cigarette Years Smoked: quit 11 years ago e-Cigarette/Vaping Use: Never Used Current occupational status: retired Current occupation: [employer] Review of Systems Const Details: Negative for appetite change, weight change, fever, chills, malaise and fatigue Eyes Details: Negative for vision change, dry eyes,headaches and dizziness Card Details: Negative chest pain, edema and syncope Resp Details: Negative for SOB, cough and wheezing GI Details: Negative indigestion/heartburn, nausea, abdominal pain, bowel changes, diarrhea, constipation and bloody stool. Skin/Breast Details: Negative for itching, rash, hives, Raynaud's symptoms, sun sensitivity, and skin cancer Shlomo/Lymph Details: Negative for excessive bruising or bleeding. Physical Exam Vital Signs: Last Vital Signs Temp 97.9 F 04/28/23 12:57 Pulse 91 04/28/23 12:57 BP 124/72 04/28/23 12:57 Pulse Ox 97 04/28/23 12:57 BMI result Body Mass Index 21.2 APPEARANCE: Patient in no acute distress EYES no redness, pupils equal and reactive to light, eyelids normal Joint exam: Cervical Spine: Full range of motion without pain; no tenderness. Thoracic Spine: No tenderness on palpation. Lumbar Spine:? Alignment normal.? Full range of motion without pain, no tenderness. Hands: Mild to moderate bony enlargement at the base of the thumbs. This is tender on both sides. There is also some D IP bony enlargement In the 2nd, 3rd and 5th fingers bilaterally that is not tender. No swelling or tenderness in the MCP joints. Wrists: mild pain with flexion extension at 75 degrees with some dorsal tenderness but no swelling, increased warmth or erythema. Elbows: Normal pain-free range of motion without tenderness, swelling, increased warmth or erythema. Shoulders:? Full range of motion without pain. No tenderness, weakness, swelling, increased warmth or erythema. Hips: Full range of motion without pain. Hip bursa: No tenderness. Knees: LEFT:? Full range of motion, there is no pain with flexion and extension.? she has slight tenderness to palpation along the medial and lateral joint line.? there is mild patellofemoral crepitus but no effusion, erythema or warmth noted. ? RIGHT: Enlarged varicose veins over anterior aspect of right knee.? Normal range of motion.? there is mild pain with extremes of motion and some medial tenderness. She has a small to moderate effusion present without redness or warmth. There is mild crepitus. Ankles: Normal pain-free range of motion without tenderness, swelling, increased warmth or erythema. Feet: ?LEFT: cock up deformity 2nd toe consistent with a hammertoe, slight redness over the dorsum of that toe, no tenderness to palpation of the dorsum.? No soft tissue swelling, open areas or drainage.? No tenderness to palpation over the metatarsals. ? RIGHT: slight cock up deformity 2nd, 3rd and 4th toe consistent with hammertoe, no redness over the dorsum of the toes and no tenderness to palpation of the dorsum.? No soft tissue swelling, open areas or drainage.?No tenderness to palpation over the metatarsals. Fifth toe crosses the fourth toe, no tenderness, erythema or warmth. Results Reviewed Results Reviewed: Laboratory Tests 10/03/22 09:41 ESR 13 C-Reactive Protein 1.06 H Assessment & Plan Assessment & Plan (1) [facility]P use of drug: Code(s): Z79.899 - Other prison (current) drug therapy (2) Osteoarthritis of hands, bilateral: Code(s): M19.041 - Primary osteoarthritis, right hand; M19.042 - Primary osteoarthritis, left hand (3) Seropositive rheumatoid arthritis: Comment: Sulfasalazine 02/2020 to present-self stopped by patient but then restarted 2022. 2018 Methotrexate - Patient stopped due to urinary frequency 2018 Leflunomide stopped due to LFTs Code(s): M05.9 - Rheumatoid arthritis with rheumatoid factor, unspecified Plan Rheumatoid arthritis with a bit more tenderness in the wrists and some swelling in the right knee as compared to her last visit. The left knee is better after corticosteroid injection. the hands look like there is significant OA at the base of the thumbs. Her hypothesis is that the zoledronic acid caused her symptoms to flare up. Usually with that count of in reaction to the zoledronic acid symptoms subside within a few weeks. She could also have just worsening OA in the thumb, worsening RA, or having experience more joint pain because of the anastrozole. We will check some x-rays of the hands. I will push the sulfasalazine up to 1 g b.i.d. as we had intended to do earlier this year. I will check acute phase reactants, CBC and Chem panel. If synovitis seems to continue we may consider retrial of the methotrexate. I could not find any significant recent that was stopped the than she was worried about some urinary symptoms at the time. Follow-up in 6 weeks is recommended. Orders: Orders XR hand LT min 3V Today M05.9 - Rheumatoid arthritis with rheumatoid factor, unspecified XR hand RT min 3V Today M05.9 - Rheumatoid arthritis with rheumatoid factor, unspecified Erythrocyte Sedimentation Rate Today M05.9 - Rheumatoid arthritis with rheumatoid factor, unspecified, Z79.899 - Other prison (current) drug therapy C Reactive Protein Today M05.9 - Rheumatoid arthritis with rheumatoid factor, unspecified, Z79.899 - Other prison (current) drug therapy Complete Blood Count Auto Diff Today M05.9 - Rheumatoid arthritis with rheumatoid factor, unspecified, Z79.899 - Other ad terminal makeup operator (current) drug therapy Comprehensive Met. Panel Today M05.9 - Rheumatoid arthritis with rheumatoid factor, unspecified, Z79.899 - Other prison (current) drug therapy Coding Level of Care Code Est Pt Level 3 (52313) Diagnoses [facility]P use of drug Z79.899 Osteoarthritis of hands, bilateral M19.041; M19.042 Seropositive rheumatoid arthritis M05.9
== END 2023-04-28 13:38 | disposition home or self-care (01) ==
PROVIDERS: PCP Internal Medicine Medical Oncology; Referring Provider Internal Medicine Medical Oncology; Visit Provider Internal Medicine Rheumatology
DX: M05.79 Rheumatoid arthritis with rheumatoid factor of multiple sites without organ or systems involvement (principal); Z79.899 Other long term (current) drug therapy; M19.041 Primary osteoarthritis, right hand; M19.042 Primary osteoarthritis, left hand
CPT/HCPCS: 99214

== ENCOUNTER → 2023-04-28 12:55 | Outpatient (BNVA) | payer MEDICARE, SELFPAY | PROVIDERS: PCP Internal Medicine Medical Oncology; Visit Provider Internal Medicine Rheumatology | DX: M19.041 Primary osteoarthritis, right hand (principal); M19.042 Primary osteoarthritis, left hand; M05.9 Rheumatoid arthritis with rheumatoid factor, unspecified; Z79.899 Other long term (current) drug therapy | CPT/HCPCS: 99212 ==

== ENCOUNTER 2023-05-02 13:22 | Outpatient (REF) | payer MEDICARE, SELFPAY ==
--- NOTE | ~2023-05-02 | XR_ITS ---
EXAMINATION: XR hand RT min 3V, XR hand LT min 3V CLINICAL INFORMATION: Rheumatoid arthritis COMPARISON: Wrist radiographs 12/25/2017 TECHNIQUE: 3 views of the bilateral hands FINDINGS: RIGHT HAND: No fracture or dislocation. Advanced degenerative changes of the first carpometacarpal joint with loss of joint space and moderate degenerative changes of the distal interphalangeal joints with loss of joint space with central cortical erosions involving the second and third DIP joints suggestive of erosive osteoarthritis. Loss of joint space involving the second and third metacarpophalangeal joints without lexi cortical erosion. Soft tissues are unremarkable. LEFT HAND: No fracture or dislocation. Advanced degenerative changes of the first carpometacarpal joint with loss of joint space progressed from prior and moderate degenerative changes of the distal interphalangeal joints with central cortical erosions involving the second, third, and fifth DIP joint suggesting erosive osteoarthritis. Soft tissues are unremarkable. XR/XR hand LT min 3V IMPRESSION: 1. Advanced degenerative changes of the bilateral first carpometacarpal joints, on the left progressed from prior, moderate degenerative changes of the distal interphalangeal joints with central cortical erosions several DIP joints suggestive of erosive osteoarthritis. 2. Loss of joint space involving the right second and third metacarpophalangeal joints without lexi cortical erosion, which can be seen in the setting of rheumatoid arthritis in the appropriate clinical setting.
--- NOTE | ~2023-05-02 | XR_ITS ---
EXAMINATION: XR hand RT min 3V, XR hand LT min 3V CLINICAL INFORMATION: Rheumatoid arthritis COMPARISON: Wrist radiographs 12/25/2017 TECHNIQUE: 3 views of the bilateral hands FINDINGS: RIGHT HAND: No fracture or dislocation. Advanced degenerative changes of the first carpometacarpal joint with loss of joint space and moderate degenerative changes of the distal interphalangeal joints with loss of joint space with central cortical erosions involving the second and third DIP joints suggestive of erosive osteoarthritis. Loss of joint space involving the second and third metacarpophalangeal joints without lexi cortical erosion. Soft tissues are unremarkable. LEFT HAND: No fracture or dislocation. Advanced degenerative changes of the first carpometacarpal joint with loss of joint space progressed from prior and moderate degenerative changes of the distal interphalangeal joints with central cortical erosions involving the second, third, and fifth DIP joint suggesting erosive osteoarthritis. Soft tissues are unremarkable. XR/XR hand RT min 3V IMPRESSION: 1. Advanced degenerative changes of the bilateral first carpometacarpal joints, on the left progressed from prior, moderate degenerative changes of the distal interphalangeal joints with central cortical erosions several DIP joints suggestive of erosive osteoarthritis. 2. Loss of joint space involving the right second and third metacarpophalangeal joints without lexi cortical erosion, which can be seen in the setting of rheumatoid arthritis in the appropriate clinical setting.
== END 2023-05-02 13:23 | disposition home or self-care (01) ==
LOC: HO.XRAY 13:22
PROVIDERS: PCP Internal Medicine Medical Oncology; Visit Provider Internal Medicine Rheumatology
DX: M05.9 Rheumatoid arthritis with rheumatoid factor, unspecified (principal)
CPT/HCPCS: 73130

== ENCOUNTER 2023-06-05 12:26 | Outpatient (REF) | payer MEDICARE, SELFPAY ==
[2023-06-05 12:41] LABS: MANUAL DIFF FLAG NO
[2023-06-05 13:33] LABS: Basophils Absolute Auto 0.1 X10*3/uL (0.0-0.2); Basophils Percent Auto 0.6 % (0-2); Eosinophils Absolute Auto 0.1 X10*3/uL (0.0-0.4); Eosinophils Percent Auto 1.7 % (0-4); Hematocrit 39.1 % (37.0-47.0); Hemoglobin 12.3 g/dl (12.0-16.0); Imm Gran Abs Auto 0.04 X10*3/uL (0.00-0.03); Imm Gran Pct Auto 0.5 % (0.0-0.4); Lymphocytes Absolute Auto 1.4 X10*3/uL (1.2-4.9); Lymphocytes Percent Auto 17.6 % (20-40); Mean Corpuscular HGB Conc 31.5 g/dl (31.0-35.0); Mean Corpuscular Hemoglobin 29.4 pg (27.0-33.0); Mean Corpuscular Volume 93.3 fL (80.0-98.0); Mean Platelet Volume 9.3 fL (9.4-12.3); Monocytes Absolute Auto 0.4 X10*3/uL (0.1-1.2); Monocytes Percent Auto 4.7 % (2-11); Neutrophils Absolute Auto 6.1 x10*3/uL (2.0-8.3); Neutrophils Percent Auto 74.9 % (45-73); Platelet Count 354 X10*3/uL (160-400); Red Blood Count 4.19 X10*6/uL (4.20-5.50); Red Cell Distribution Width 14.8 % (11.0-16.0); White Blood Count 8.1 X10*3/uL (4.8-10.8)
[2023-06-05 14:03] LABS: Alanine Aminotransferase 5 U/L (0-31); Albumin Level 4.2 g/dL (3.5-5.0); Alkaline Phosphatase 65 U/L (39-117); Anion Gap 11 (12-20); Aspartate Amino Transferase 12 U/L (5-31); Bilirubin Total 0.5 mg/dL (0.0-1.0); Blood Urea Nitrogen 15 mg/dL (9-16); Calcium 9.7 mg/dL (8.4-10.2); Carbon Dioxide 27 mmol/L (22-29); Chloride 106 mmol/L (96-108); Estimated Glomerular Filt Rate > 60; Glucose Random 122 mg/dL (60-115); Potassium 3.9 mmol/L (3.3-5.1); Sodium 140 mmol/L (135-145); Total Protein 7.5 g/dL (6.5-8.0)
[2023-06-05 14:12] LABS: Erythrocyte Sedimentation Rate 16 MM/HR (0-20)
== END 2023-06-05 12:27 | disposition home or self-care (01) ==
LOC: HO.LAB 12:26
PROVIDERS: PCP Internal Medicine Medical Oncology; Visit Provider Internal Medicine Rheumatology
DX: M05.9 Rheumatoid arthritis with rheumatoid factor, unspecified (principal); Z79.899 Other long term (current) drug therapy
CPT/HCPCS: 36415; 80053; 85025; 85652; 86140

== ENCOUNTER 2023-06-12 13:32 | Outpatient (REF) | payer MEDICARE, SELFPAY ==
[2023-06-12 15:26] LABS: MN% 23.4 %; PMN% 76.6 %
[2023-06-12 15:46] LABS: BF Shift QC OK YES; Lymphocytes Synovial Fluid 12 %; Man Diluent Bkgrd OK YES; Monocytes Synovial Fluid 8 %; Neutrophils Synovial Fluid 79 %; Other Cells Synovial Fluid 1
[2023-06-12 15:47] LABS: Source Synovial Fluid LEFT KNEE
== END 2023-06-12 13:33 | disposition home or self-care (01) ==
LOC: HO.LAB 13:32
PROVIDERS: PCP Internal Medicine Medical Oncology; Visit Provider Nurse Practitioner Family
DX: M25.462 Effusion, left knee (principal); M05.9 Rheumatoid arthritis with rheumatoid factor, unspecified; Z79.60 Long term (current) use of unspecified immunomodulators and immunosuppressants
CPT/HCPCS: 20610; 87070; 87073; 87205; 89051; 99212

== ENCOUNTER 2023-06-12 13:32 | Outpatient (AMB) | payer MEDICARE, SELFPAY ==
[2023-06-12 13:39] VITALS: BP 130/68; PULSE 88; RESP 16; TEMP 36.1; O2SAT 98; BMI 21.2
--- NOTE | 2023-06-12 13:39 | A.OFFVIS_ITS ---
Intake Vital Signs 06/12/23 13:39 Height 5 ft 6 in Weight 131 lb 9.855 oz BMI 21.2 BP 130/68 Blood Pressure Location Lt brachial Position Sitting Respiration 16 Pulse 88 Pulse Source Pulse Oximeter Temp 97.0 F Temp Source Skin Pulse Oximetry (%) 98 Oxygen Delivery Method Room Air Intake Visit Reasons: RA/OA Mass Spec Required: No Accompanied by: Self / Same As Patient Allergies azithromycin [AZITHROMYCIN] Allergy (Intermediate, Verified 06/12/23 13:44) RASH Medication List - Last Reconciled 06/12/23 by Agnes Riggins RN [acetaminophen 500 mg PO QD-QID PRN] cholecalciferol (vitamin D3) 25 mcg PO DAILY ibuprofen 200 mg PO Q6H PRN sulfasalazine Take 1 tab (500mg) po BID x 7 days, then Take 2 tabs (1000mg) po in the am and 1 tab (500mg) po in the pm x 7 days, then Take 2 tabs (1000mg) po BID thereafter. tramadol 50 mg PO Q6H PRN HPI HPI Comments History of Present Illness Details Mrs. Mac, 77-year-old female, presents for follow-up for rheumatoid arthritis. She is currently taking sulfasalazine 500 mg 2 tablets b.i.d. and denies any side effects related to the medication. She continues to complain about her left knee for which she received a cortisone injection at last visit and says that it did help the pain and the left knee. She recently did yard work and thinks that might have made it worse. She desires a cortisone injection to the left knee today. Today, she denies any pain to bilateral hands. Per patient, she has had significant reduction in her overall joint pain and achiness since she stopped taking anastrozole. -- pain at the base of the thumbs bilate rally, known osteoarthritis in that area --sulfasalazine 500 mg 3 times a day - w as not clear on uptitrating plan. --methotrexate, the chart indicates, kathleen k in 2019 - stopped the because of urinary symptoms. -- 2019 also received leflunomide- stopp ed because of LFT elevations. --2022 breast cancer - put on anastrozol e but stopped because of increase joint pain -- risk for osteoporosis; zoledronic aci d 03/2023 - had increased pain in the wrists and the base of the thumbs bilaterally, improved. [facility] Medical History (Updated 06/12/23 @ 14:34 by CHRISTA Crystal) Long-term use of immunosuppressant medication Breast cancer, right (~07/2022) Osteopenia after menopause Seropositive rheumatoid arthritis Cholecystectomy planned Urinary bladder incontinence Chronic gastritis Normal colonoscopy GERD (gastroesophageal reflux disease) Erosive esophagitis Dysphagia Rheumatoid arthritis Surgical History History of esophagogastroduodenoscopy (EGD) S/P hip replacement Social History Household Members: Spouse Alcohol intake: never Patient Tobacco Use Status: Former Tobacco user Tobacco use type: Cigarette Years Smoked: quit 11 years ago e-Cigarette/Vaping Use: Never Used Current occupational status: retired 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 There is also some DIP bony enlargement. No swelling or tenderness Wrists: mild pain with flexion extension at 75 degrees with some dorsal tenderness but no swelling, increased warmth or erythema. Elbows: Normal pain-free range of motion without tenderness, swelling, increased warmth or erythema. Shoulders:? Full range of motion without pain. No tenderness, weakness, swelling, increased warmth or erythema. Hips: Full range of motion without pain. Hip bursa: No tenderness. Knees: LEFT:? Full range of motion, there is no pain with flexion and extension.? she has moderate tenderness to palpation along the medial and lateral joint line.? there is moderate patellofemoral effusion, and warmth noted. ? RIGHT: Enlarged varicose veins over anterior aspect of right knee.? Normal range of motion.? there is mild pain with extremes of motion and some medial tenderness. She has a small effusion present without redness or warmth. There is mild crepitus. Ankles: Normal pain-free range of motion without tenderness, swelling, increased warmth or erythema. Feet: ?LEFT: cock up deformity 2nd toe consistent with a hammertoe, slight redness over the dorsum of that toe, no tenderness to palpation of the dorsum.? No soft tissue swelling, open areas or drainage.? No tenderness to palpation over the metatarsals. ? RIGHT: slight cock up deformity 2nd, 3rd and 4th toe consistent with hammertoe, no redness over the dorsum of the toes and no tenderness to palpation of the dorsum.? No soft tissue swelling, open areas or drainage.?No tenderness to palpation over the metatarsals. Fifth toe crosses the fourth toe, no tenderness, erythema or warmth. Office Procedures Joint Injection/Drain Joint Injection/Drain Details: I aspirated approximately 15 ml of clear Synovial fluid from the Left Knee and then Primary Site: left knee Prep: site was prepped using aseptic technique Injected: 80 mg of, Kenalog, with 1 mL of, 1% plain lidocaine and in the joint Approach Used: lateral parapatellar Procedure: The patient tolerated the procedure well Coding 77681 - Large joint Procedure code (CPT) selection complete Results Reviewed Results Reviewed: 06/05/2023 MPV 9.3 low Immature granulocytes 0.5 high Neutrophils 74.9 high Lymphocytes 17.6 low CRP 2.30 high ESR 16 Vitamin-D 64.4 on 11/13/2022 Assessment & Plan Assessment & Plan (1) Seropositive rheumatoid arthritis: Comment: Sulfasalazine 02/2020 to present-self stopped by patient but then restarted 2018 Methotrexate - Patient stopped due to urinary frequency 2018 Leflunomide stopped due to LFTs Code(s): M05.9 - Rheumatoid arthritis with rheumatoid factor, unspecified (2) Long-term use of immunosuppressant medication: Code(s): Z79.60 - skilled nursing (current) use of unspecified immunomodulators and immunosuppressants (3) Effusion, left knee: Code(s): M25.462 - Effusion, left knee Plan #SeroPositive RA/Left Knee Effusion: (+CCP >250, RF 37.01 Dec 2017)Mrs. Mac, has seropositive rheumatoid arthritis that is especially active her knees persisting with swelling and warmth and prior aspiration WBCs >10,000. She is s/p left knee injection back in January 2023 and had done well with the injection per patient as her pain was resolved. However, today there is swelling and tenderness to the left knee with warmth and it seem reasonable that she could get a corticosteroid injection. I also aspirated the left knee. There is also trace swelling to the right knee and mild tenderness. She will continue SLZ 500 mg 2 tablets BID. If synovitis continues to left knee, we may consider retrial of the methotrexate as SLZ is not adequate to manage the RA. I could not find any significant reason that it was stopped other than she was worried about urinary symptoms at the time. #Yard Jockey Use of Meds: I will obtain labs to monitor for pancytopenia which can occur with the use of immunosuppressive therapy. #Breast Cancer - We will also reach out to Oncology to discuss if MTX can be used given her current bout with Breast Cancer and she is s/p lumpectomy. Follow-up in 4 months. Patient knows to call sooner if needed. Orders: Orders Cell Ct wDiff Synovial Fl Today M05.9 - Rheumatoid arthritis with rheumatoid factor, unspecified, M25.462 - Effusion, left knee C Reactive Protein 4 Months M05.9 - Rheumatoid arthritis with rheumatoid factor, unspecified, Z79.60 - long term care administrator (current) use of unspecified immunomodulators and immunosuppressants Complete Blood Count Auto Diff 4 Months M05.9 - Rheumatoid arthritis with rheumatoid factor, unspecified, Z79.60 - skilled nursing (current) use of unspecified immunomodulators and immunosuppressants, Z79.899 - Other long term care administrator (current) drug therapy Comprehensive Met. Panel 4 Months M05.9 - Rheumatoid arthritis with rheumatoid factor, unspecified, Z79.60 - skilled nursing (current) use of unspecified immunomodulators and immunosuppressants Synovial Fld Cult + Gram stain Today M05.9 - Rheumatoid arthritis with rheumatoid factor, unspecified, M25.462 - Effusion, left knee Erythrocyte Sedimentation Rate 4 Months M05.9 - Rheumatoid arthritis with rheumatoid factor, unspecified, Z79.60 - long term care administrator (current) use of unspecified immunomodulators and immunosuppressants Coding Level of Care Code Est Pt Level 3 (59193) Diagnoses Seropositive rheumatoid arthritis M05.9 Long-term use of immunosuppressant medication Z79.60 Effusion, left knee M25.462 CPT Codes Coding - 16371 Large joint: 90203 - Large joint ([id number])
== END 2023-06-12 14:36 | disposition home or self-care (01) ==
PROVIDERS: PCP Internal Medicine Medical Oncology; Visit Provider Nurse Practitioner Family
DX: M05.79 Rheumatoid arthritis with rheumatoid factor of multiple sites without organ or systems involvement (principal); Z79.60 Long term (current) use of unspecified immunomodulators and immunosuppressants; M25.462 Effusion, left knee
CPT/HCPCS: 20610; 99214

== ENCOUNTER 2023-10-06 08:21 | Outpatient (REF) | payer MEDICARE, SELFPAY ==
[2023-10-06 08:30] LABS: MANUAL DIFF FLAG NO
[2023-10-06 09:36] LABS: Basophils Percent Auto 0.6 % (0-2); Eosinophils Absolute Auto 0.2 X10*3/uL (0.0-0.4); Eosinophils Percent Auto 3.1 % (0-4); Hematocrit 38.3 % (37.0-47.0); Hemoglobin 12.2 g/dl (12.0-16.0); Imm Gran Abs Auto 0.02 X10*3/uL (0.00-0.03); Imm Gran Pct Auto 0.3 % (0.0-0.4); Lymphocytes Absolute Auto 1.6 X10*3/uL (1.2-4.9); Lymphocytes Percent Auto 21.9 % (20-40); Mean Corpuscular HGB Conc 31.9 g/dl (31.0-35.0); Mean Corpuscular Hemoglobin 29.1 pg (27.0-33.0); Mean Corpuscular Volume 91.4 fL (80.0-98.0); Mean Platelet Volume 9.4 fL (9.4-12.3); Monocytes Absolute Auto 0.3 X10*3/uL (0.1-1.2); Monocytes Percent Auto 4.2 % (2-11); Neutrophils Absolute Auto 5.1 x10*3/uL (2.0-8.3); Neutrophils Percent Auto 69.9 % (45-73); Platelet Count 310 X10*3/uL (160-400); Red Blood Count 4.19 X10*6/uL (4.20-5.50); Red Cell Distribution Width 12.6 % (11.0-16.0); White Blood Count 7.2 X10*3/uL (4.8-10.8)
[2023-10-06 09:57] LABS: Alanine Aminotransferase 9 U/L (0-31); Albumin Level 4.1 g/dL (3.5-5.0); Alkaline Phosphatase 72 U/L (39-117); Anion Gap 11 (12-20); Aspartate Amino Transferase 12 U/L (5-31); Bilirubin Total 0.7 mg/dL (0.0-1.0); Blood Urea Nitrogen 14 mg/dL (9-16); Carbon Dioxide 28 mmol/L (22-29); Chloride 108 mmol/L (96-108); Estimated Glomerular Filt Rate > 60; Glucose Random 98 mg/dL (60-115); Potassium 3.7 mmol/L (3.3-5.1); Sodium 143 mmol/L (135-145); Total Protein 7.2 g/dL (6.5-8.0)
[2023-10-06 11:21] LABS: Erythrocyte Sedimentation Rate 21 MM/HR (0-20)
== END 2023-10-06 08:22 | disposition home or self-care (01) ==
LOC: HO.LAB 08:21
PROVIDERS: PCP Internal Medicine Medical Oncology; Visit Provider Nurse Practitioner Family
DX: M05.9 Rheumatoid arthritis with rheumatoid factor, unspecified (principal); Z79.60 Long term (current) use of unspecified immunomodulators and immunosuppressants
CPT/HCPCS: 36415; 80053; 85025; 85652; 86140

== ENCOUNTER 2023-10-10 12:57 | Outpatient (AMB) | payer MEDICARE, SELFPAY ==
--- NOTE | 2023-10-10 12:56 | A.OFFVIS_ITS ---
Intake Vital Signs 10/10/23 13:04 Height 5 ft 6 in Weight 129 lb 3.054 oz BMI 20.8 BP 106/70 Blood Pressure Location Rt brachial Position Sitting Pulse 86 Pulse Source Pulse Oximeter Temp 97.0 F Temp Source Skin Pulse Oximetry (%) 98 Oxygen Delivery Method Room Air Intake Visit Reasons: RA/Left knee swelling Intake Note: Patient last seen 06/12/23 by Ramone, presents today for follow up and test results. c/o right knee pain and swelling Prison Keeper Required: No Accompanied by: Self / Same As Patient Allergies azithromycin [AZITHROMYCIN] Allergy (Intermediate, Verified 10/10/23 12:56) RASH HPI HPI Comments History of Present Illness Details Mrs. Mac, 77-year-old female, presents for follow-up for rheumatoid arthritis. She is currently taking sulfasalazine 500 mg 2 tablets b.i.d. and denies any side effects related to the medication. She continues to complain about her left knee for which she received a cortisone injection at last visit and says that it did help the pain and the left knee. She recently did yard work and thinks that might have made it worse. She desires a cortisone injection to the left knee today. Today, she denies any pain to bilateral hands. Per patient, she has had significant reduction in her overall joint pain and achiness since she stopped taking anastrozole. -- pain at the base of the thumbs bilate rally, known osteoarthritis in that area --sulfasalazine 500 mg 3 times a day - w as not clear on uptitrating plan. --methotrexate, the chart indicates, kathleen k in 2019 - stopped the because of urinary symptoms. -- 2019 also received leflunomide- stopp ed because of LFT elevations. --2022 breast cancer - put on anastrozol e but stopped because of increase joint pain -- risk for osteoporosis; zoledronic aci d 03/2023 - had increased pain in the wrists and the base of the thumbs bilaterally, improved. [facility], [facility] Medical History (Updated 10/10/23 @ 17:29 by Soledad Pack, DIPLOMATIC INTERPRETER/TRANSLATOR-) Pain and swelling of right knee Long-term use of immunosuppressant medication Breast cancer, right (~07/2022) Osteopenia after menopause Seropositive rheumatoid arthritis Cholecystectomy planned Urinary bladder incontinence Chronic gastritis Normal colonoscopy GERD (gastroesophageal reflux disease) Erosive esophagitis Dysphagia Rheumatoid arthritis Surgical History History of esophagogastroduodenoscopy (EGD) S/P hip replacement Social History Household Members: Spouse Alcohol intake: never Patient Tobacco Use Status: Former Tobacco user Tobacco use type: Cigarette Years Smoked: quit 11 years ago e-Cigarette/Vaping Use: Never Used Current occupational status: retired Current occupation: [employer] Physical Exam Vital Signs: Last Vital Signs Temp 97.0 F 10/10/23 13:04 Pulse 86 10/10/23 13:04 BP 106/70 10/10/23 13:04 Pulse Ox 98 10/10/23 13:04 Oxygen Delivery Method Room Air 10/10/23 13:04 BMI result Body Mass Index 20.8 Office Procedures Joint Injection/Drain Joint Injection/Drain Primary Site: right knee Prep: site was prepped using aseptic technique Injected: 80 mg of, with 1 mL of and 1% plain lidocaine Approach Used: lateral parapatellar Procedure: The patient tolerated the procedure well Coding 49669 - Large joint Procedure code (CPT) selection complete Results Reviewed Results Reviewed: Laboratory Tests 10/06/23 08:29 WBC 7.2 RBC 4.19 L Hgb 12.2 Hct 38.3 ESR 21 H Creatinine 0.71 Estimated GFR > 60 AST 12 C-Reactive Protein 1.50 H Total Protein 7.2 Assessment & Plan Assessment & Plan (1) Seropositive rheumatoid arthritis: Comment: Sulfasalazine 02/2020 to present-self stopped by patient but then restarted 2022. increase to 1500MG bid 2018 Methotrexate - Patient stopped due to urinary frequency 2018 Leflunomide stopped due to LFTs Code(s): M05.9 - Rheumatoid arthritis with rheumatoid factor, unspecified (2) Long-term use of immunosuppressant medication: Code(s): Z79.60 - care home (current) use of unspecified immunomodulators and immunosuppressants (3) Pain and swelling of right knee: Code(s): M25.561 - Pain in right knee; M25.461 - Effusion, right knee Plan #SeroPositive RA/Right Knee Effusion: (+CCP >250, RF 37.01 Dec 2017) Mrs. Mac, has seropositive rheumatoid arthritis that is especially active in her knees persisting with swelling and warmth and prior aspiration WBCs >10,000. She is s/p left knee injection May 2023 and continues to do well with the injection per patient her pain was resolved. However, today there is swelling and tenderness to the right knee knee with warmth and it seem reasonable that she could get aspiration and a corticosteroid injection. I also aspirated 13 mL fluid from the right knee. Per patient the knee started to be bothersome in [facility] 2023, I encouraged the patient to call the office earlier so that she does not suffer long. At this time she is still undergoing treatment for breast cancer so I will not add any other medication to her regimen but I will increase her sulfasalazine to 3 tablets b.i.d. up from SLZ 500 mg 2 tablets BID. #Business Performance Manager Use of Meds: Her current lab studies are within good range to continue the sulfasalazine. I will obtain labs to monitor for pancytopenia which can occur with the use of immunosuppressive therapy one-week before next visit.. #Breast Cancer - she has an upcoming infusion scheduled. Follow-up in 4 months. Patient knows to call sooner if needed. I spent 30 minutes reviewing chart, evaluating patient, and documenting. Orders: Orders Erythrocyte Sedimentation Rate Today M05.9 - Rheumatoid arthritis with rheumatoid factor, unspecified, Z79.60 - intermediate project manager (current) use of unspecified immunomodulators and immunosuppressants Comprehensive Met. Panel Today M05.9 - Rheumatoid arthritis with rheumatoid factor, unspecified, Z79.60 - intermediate project manager (current) use of unspecified immunomodulators and immunosuppressants AMB Joint Injection/Aspiration Today M05.9 - Rheumatoid arthritis with rheumatoid factor, unspecified, M25.461 - Effusion, right knee, M25.561 - Pain in right knee Complete Blood Count Auto Diff Today M05.9 - Rheumatoid arthritis with rheumatoid factor, unspecified, Z79.60 - care home (current) use of unspecified immunomodulators and immunosuppressants C Reactive Protein Today M05.9 - Rheumatoid arthritis with rheumatoid factor, unspecified, Z79.60 - intermediate project manager (current) use of unspecified immunomodulators and immunosuppressants Medications: Changed From sulfasalazine 1 g (2 x 500 mg) PO BID 120 tabs 0RF M05.9 - Rheumatoid arthritis with rheumatoid factor, unspecified To sulfasalazine 1.5 grams (3 x 500 mg) PO BID 120 tabs 0RF M05.9 - Rheumatoid arthritis with rheumatoid factor, unspecified Coding Level of Care Code Est Pt Level 4 (95079) Diagnoses Seropositive rheumatoid arthritis M05.9 Long-term use of immunosuppressant medication Z79.60 Pain and swelling of right knee M25.561; M25.461 CPT Codes Coding - 77805 Large joint: 65090 - Large joint ([id number])
[2023-10-10 13:04] VITALS: BP 106/70; PULSE 86; TEMP 36.1; O2SAT 98; BMI 20.8
== END 2023-10-10 13:34 | disposition home or self-care (01) ==
PROVIDERS: PCP Internal Medicine Medical Oncology; Visit Provider Nurse Practitioner Family
DX: M05.79 Rheumatoid arthritis with rheumatoid factor of multiple sites without organ or systems involvement (principal); M25.561 Pain in right knee; M25.461 Effusion, right knee; Z79.60 Long term (current) use of unspecified immunomodulators and immunosuppressants
CPT/HCPCS: 20610; 99214

== ENCOUNTER → 2023-10-10 12:57 | Outpatient (BNVA) | payer MEDICARE, SELFPAY | PROVIDERS: PCP Internal Medicine Medical Oncology; Visit Provider Nurse Practitioner Family | DX: M05.9 Rheumatoid arthritis with rheumatoid factor, unspecified (principal); M25.561 Pain in right knee; M25.461 Effusion, right knee; Z79.60 Long term (current) use of unspecified immunomodulators and immunosuppressants | CPT/HCPCS: 20610; 99212 ==

== ENCOUNTER 2023-11-18 08:16 | Outpatient (REF) | payer MEDICARE, SELFPAY ==
[2023-11-18 08:41] LABS: MANUAL DIFF FLAG NO
[2023-11-18 09:21] LABS: Basophils Percent Auto 0.7 % (0-2); Eosinophils Absolute Auto 0.1 X10*3/uL (0.0-0.4); Eosinophils Percent Auto 1.7 % (0-4); Hematocrit 40.3 % (37.0-47.0); Hemoglobin 12.9 g/dl (12.0-16.0); Imm Gran Abs Auto 0.02 X10*3/uL (0.00-0.03); Imm Gran Pct Auto 0.3 % (0.0-0.4); Lymphocytes Absolute Auto 1.3 X10*3/uL (1.2-4.9); Lymphocytes Percent Auto 21.9 % (20-40); Mean Corpuscular Hemoglobin 30.1 pg (27.0-33.0); Mean Corpuscular Volume 93.9 fL (80.0-98.0); Mean Platelet Volume 9.2 fL (9.4-12.3); Monocytes Absolute Auto 0.4 X10*3/uL (0.1-1.2); Monocytes Percent Auto 6.3 % (2-11); Neutrophils Percent Auto 69.1 % (45-73); Platelet Count 273 X10*3/uL (160-400); Red Blood Count 4.29 X10*6/uL (4.20-5.50); Red Cell Distribution Width 14.9 % (11.0-16.0); White Blood Count 5.7 X10*3/uL (4.8-10.8)
[2023-11-18 09:23] LABS: Basophils Percent Auto 0.5 % (0-2); Eosinophils Absolute Auto 0.1 X10*3/uL (0.0-0.4); Hematocrit 40.6 % (37.0-47.0); Hemoglobin 12.8 g/dl (12.0-16.0); Imm Gran Abs Auto 0.03 X10*3/uL (0.00-0.03); Imm Gran Pct Auto 0.5 % (0.0-0.4); Lymphocytes Absolute Auto 1.2 X10*3/uL (1.2-4.9); Lymphocytes Percent Auto 22.2 % (20-40); Mean Corpuscular HGB Conc 31.5 g/dl (31.0-35.0); Mean Corpuscular Hemoglobin 29.8 pg (27.0-33.0); Mean Corpuscular Volume 94.6 fL (80.0-98.0); Mean Platelet Volume 9.2 fL (9.4-12.3); Monocytes Absolute Auto 0.3 X10*3/uL (0.1-1.2); Monocytes Percent Auto 5.8 % (2-11); Neutrophils Absolute Auto 3.8 x10*3/uL (2.0-8.3); Platelet Count 275 X10*3/uL (160-400); Red Blood Count 4.29 X10*6/uL (4.20-5.50); White Blood Count 5.5 X10*3/uL (4.8-10.8)
[2023-11-18 10:07] LABS: Alanine Aminotransferase 19 U/L (0-31); Albumin Level 4.2 g/dL (3.5-5.0); Alkaline Phosphatase 66 U/L (39-117); Anion Gap 10 (12-20); Aspartate Amino Transferase 18 U/L (5-31); Bilirubin Total 0.7 mg/dL (0.0-1.0); Blood Urea Nitrogen 15 mg/dL (9-16); Calcium 9.9 mg/dL (8.4-10.2); Carbon Dioxide 28 mmol/L (22-29); Chloride 107 mmol/L (96-108); Cholesterol 205 mg/dL (<200); Estimated Glomerular Filt Rate > 60; Glucose Fasting 93 mg/dL (60-99); HDL Cholesterol 62 mg/dL (>40); LDL Cholesterol Calculated 130 mg/dL (<100); Potassium 4.2 mmol/L (3.3-5.1); Sodium 141 mmol/L (135-145); Triglycerides 67 mg/dL (<150)
[2023-11-18 10:08] LABS: Erythrocyte Sedimentation Rate 7 MM/HR (0-20)
[2023-11-18 10:19] LABS: Alanine Aminotransferase 20 U/L (0-31); Albumin Level 4.2 g/dL (3.5-5.0); Alkaline Phosphatase 67 U/L (39-117); Anion Gap 12 (12-20); Aspartate Amino Transferase 19 U/L (5-31); Bilirubin Total 0.7 mg/dL (0.0-1.0); Blood Urea Nitrogen 15 mg/dL (9-16); C Reactive Protein 0.34 mg/dL (< or = 0.50); Calcium 9.9 mg/dL (8.4-10.2); Carbon Dioxide 27 mmol/L (22-29); Chloride 107 mmol/L (96-108); Estimated Glomerular Filt Rate > 60; Glucose Random 92 mg/dL (60-115); Potassium 4.1 mmol/L (3.3-5.1); Sodium 142 mmol/L (135-145)
== END 2023-11-18 08:17 | disposition home or self-care (01) ==
LOC: HO.LAB 08:16
PROVIDERS: PCP Internal Medicine Medical Oncology; Visit Provider Nurse Practitioner Family
DX: M05.9 Rheumatoid arthritis with rheumatoid factor, unspecified (principal); M19.90 Unspecified osteoarthritis, unspecified site; D70.9 Neutropenia, unspecified; R63.4 Abnormal weight loss; Z79.60 Long term (current) use of unspecified immunomodulators and immunosuppressants
CPT/HCPCS: 36415; 80053; 80061; 85025; 85652; 86140

== ENCOUNTER 2024-03-23 08:14 | Outpatient (REF) | payer MEDICARE, SELFPAY ==
[2024-03-23 08:38] LABS: MANUAL DIFF FLAG NO
[2024-03-23 09:13] LABS: Basophils Percent Auto 0.8 % (0-2); Eosinophils Absolute Auto 0.1 X10*3/uL (0.0-0.4); Eosinophils Percent Auto 2.5 % (0-4); Hematocrit 37.6 % (37.0-47.0); Hemoglobin 12.2 g/dl (12.0-16.0); Imm Gran Abs Auto 0.03 X10*3/uL (0.00-0.03); Imm Gran Pct Auto 0.6 % (0.0-0.4); Lymphocytes Absolute Auto 1.1 X10*3/uL (1.2-4.9); Lymphocytes Percent Auto 21.2 % (20-40); Mean Corpuscular HGB Conc 32.4 g/dl (31.0-35.0); Mean Corpuscular Hemoglobin 30.1 pg (27.0-33.0); Mean Corpuscular Volume 92.8 fL (80.0-98.0); Mean Platelet Volume 9.3 fL (9.4-12.3); Monocytes Absolute Auto 0.3 X10*3/uL (0.1-1.2); Monocytes Percent Auto 5.9 % (2-11); Neutrophils Absolute Auto 3.7 x10*3/uL (2.0-8.3); Platelet Count 284 X10*3/uL (160-400); Red Blood Count 4.05 X10*6/uL (4.20-5.50); White Blood Count 5.3 X10*3/uL (4.8-10.8)
[2024-03-23 10:01] LABS: Alanine Aminotransferase 9 U/L (0-31); Alkaline Phosphatase 64 U/L (39-117); Anion Gap 11 (12-20); Aspartate Amino Transferase 15 U/L (5-31); Bilirubin Total 0.6 mg/dL (0.0-1.0); Blood Urea Nitrogen 14 mg/dL (9-16); Calcium 9.7 mg/dL (8.4-10.2); Carbon Dioxide 25 mmol/L (22-29); Chloride 109 mmol/L (96-108); Cholesterol 176 mg/dL (<200); Estimated Glomerular Filt Rate > 60; Glucose Fasting 99 mg/dL (60-99); HDL Cholesterol 53 mg/dL (>40); LDL Cholesterol Calculated 110 mg/dL (<100); Potassium 4.1 mmol/L (3.3-5.1); Sodium 141 mmol/L (135-145); Total Protein 6.7 g/dL (6.5-8.0); Triglycerides 68 mg/dL (<150)
== END 2024-03-23 08:15 | disposition home or self-care (01) ==
LOC: HO.LAB 08:14
PROVIDERS: PCP Internal Medicine Medical Oncology; Visit Provider Internal Medicine Medical Oncology
DX: Z00.00 Encounter for general adult medical examination without abnormal findings (principal); Z87.898 Personal history of other specified conditions
CPT/HCPCS: 36415; 80053; 80061; 85025

== ENCOUNTER 2024-12-18 08:09 | Outpatient (REF) | payer MEDICARE, SELFPAY ==
[2024-12-18 08:21] LABS: MANUAL DIFF FLAG NO
[2024-12-18 08:30] LABS: Basophils Percent Auto 0.7 % (0-2); Eosinophils Absolute Auto 0.1 X10*3/uL (0.0-0.4); Eosinophils Percent Auto 1.7 % (0-4); Hematocrit 36.7 % (37.0-47.0); Hemoglobin 11.9 g/dl (12.0-16.0); Imm Gran Abs Auto 0.03 X10*3/uL (0.00-0.03); Imm Gran Pct Auto 0.5 % (0.0-0.4); Lymphocytes Absolute Auto 1.4 X10*3/uL (1.2-4.9); Lymphocytes Percent Auto 23.3 % (20-40); Mean Corpuscular HGB Conc 32.4 g/dl (31.0-35.0); Mean Corpuscular Hemoglobin 31.3 pg (27.0-33.0); Mean Corpuscular Volume 96.6 fL (80.0-98.0); Mean Platelet Volume 9.1 fL (9.4-12.3); Monocytes Absolute Auto 0.3 X10*3/uL (0.1-1.2); Monocytes Percent Auto 5.1 % (2-11); Neutrophils Absolute Auto 4.2 x10*3/uL (2.0-8.3); Neutrophils Percent Auto 68.7 % (45-73); Platelet Count 286 X10*3/uL (160-400); Red Cell Distribution Width 15.8 % (11.0-16.0); White Blood Count 6.1 X10*3/uL (4.8-10.8)
[2024-12-18 09:10] LABS: Alanine Aminotransferase 6 U/L (0-31); Albumin Level 4.4 g/dL (3.5-5.0); Alkaline Phosphatase 56 U/L (39-117); Anion Gap 13 (12-20); Aspartate Amino Transferase 20 U/L (5-31); Bilirubin Total 0.7 mg/dL (0.0-1.0); Blood Urea Nitrogen 14 mg/dL (9-16); Calcium 9.9 mg/dL (8.4-10.2); Carbon Dioxide 25 mmol/L (22-29); Chloride 109 mmol/L (96-108); Cholesterol 145 mg/dL (<200); Estimated Glomerular Filt Rate > 60; Glucose Random 104 mg/dL (60-115); HDL Cholesterol 49 mg/dL (>40); LDL Cholesterol Calculated 74 mg/dL (<100); Sodium 143 mmol/L (135-145); Total Protein 7.1 g/dL (6.5-8.0); Triglycerides 114 mg/dL (<150)
== END 2024-12-18 08:10 | disposition home or self-care (01) ==
LOC: HO.LAB 08:09
PROVIDERS: PCP Internal Medicine Medical Oncology; Visit Provider Internal Medicine Medical Oncology
DX: D70.9 Neutropenia, unspecified (principal); D05.11 Intraductal carcinoma in situ of right breast; Z13.6 Encounter for screening for cardiovascular disorders
CPT/HCPCS: 36415; 80053; 80061; 85025

== ENCOUNTER 2025-02-21 09:10 | Outpatient (REF) | payer MEDICARE, SELFPAY ==
--- OUTSIDE RECORDS SUMMARY | 2024-12-23 07:00 | XMS_ITS ---
Author Organization Sid Avila III, MD Address [address] [place] [address] Care Team Providers Care Frame Feeder Name Role Phone Sid Avila Primary Care [...] Problem Status W/U Status Risk Notes Problem [id number] Weight loss (R63.4) Active confirmed He has [...] Date Provider Diagnosis Sid Avila III, MD [address] [place] [address] [place] [address] 12/23/2024 Sid Avila Weight loss R63.4 ; [...] - M05.9) She continues to see the sealing and canceling machine operator and to take medication. She says her [...] OV Provider Name:Sid Avila, 03/02/2025 02:15:00 PM, [address] [place] [address] [address], [place], [address], Provider Name:Sid Aivla, 12/27/2025 02:00:00 PM, [address] [place] [address] [address], [place], [address], Progress Notes * Estefania AGUILERA MDOB:1945 (79 yo F)Acc No.[id number]:12/23/2024 Progress Notes Patient: Estefania ZAZUETA Provider: Brad Avila MD :1945 A ge:79 Y S ex:Female Date:12/23/2024 Address:[address] [place] [address] SAMANTHA Truong [id number] Subjective: * Chief Complaints: * A nnual [...] for DCIS upper outer quadrant right breast, [facility], Dr. Nahed Archer 07/31/2022Right hip arthroplasty 2014Esophageal [...] cancer in May 2012, being treated in [place], [place]. A niece had a double mastectomy. [...] for many years. She was born in [place]. * Medications: T akingsulfaSALAzine 500 MG Tablet [...] N otes :She continues to see the sealing and canceling machine operator and to take medication. She says her [...] 0 12/23/2024 Generated for Lucio grace/Carlitos/Popitting on: 02/22/2025 09:36 AM EDT History and Physical Notes * HPI [...]
--- NOTE | ~2025-02-21 | XR_ITS ---
EXAMINATION: XR KNEE, LEFT CLINICAL INFORMATION: M25.569 - Pain in unspecified knee COMPARISON: October 03, 2022 TECHNIQUE: Three views of the left knee. FINDINGS: There is a joint effusion. There is severe joint space narrowing with flattening of the medial femoral condyle and subchondral sclerosis involving the medial compartment. There is mild narrowing of the lateral compartment. There is amorphous calcific density within the lateral meniscus. There is moderate narrowing of the patellofemoral joint space. There are tricompartmental marginal spurs, musculoskeletal and the medial joint line and patellofemoral joint. Single image of the right knee demonstrates chondrocalcinosis in the medial and lateral meniscus. XR/XR knee LT 3V IMPRESSION: There is mild concavity of the central weightbearing surface of the medial femoral condyle. If the patient has experienced acute worsening of pain, this could indicate a subchondral insufficiency fracture. 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 Small joint effusion. Electronically signed by: Zay Sharma MD 02/21/2025 11:43 AM EDT
--- OUTSIDE RECORDS SUMMARY | 2025-02-22 09:36 | XMS_ITS | Patient Health Record ---
Author Organization [facility] Jeanettegabi Sinha Address [address] [place] [address] Care Team Providers Care Early Childhood Lead Teacher Name Role Phone Sid Avila MD Primary Care Provider Francisco HartAlbina Unavailable [phone] Allergies No Known Allergies Reason For Referral No Information Medications Medication SIG (Take, Route, Fr equency, Duration) Notes Start Date End Date Status sulfaSALAzine 500 MG 1 tablet Orally Onc e a day; Duration: 30 day(s) Active Social History Tobacco Use: Social History Observation Description Date Details (start date - stop date) Former Smoker NA - NA Tobacco Use/Smoking Question Answer Notes Are you a: former smoker Additional Findings: Tobacco Non-User Current no n-smoker Alcohol Screen Question Answer Notes Did you have a drink containing alcohol in the p ast year? No Points 0 Interpretation Negative Tobacco use other than smoking: Question Answer Notes Are you an other tobacco user? No Problems Problem Type SNOMED Code ICD Code Onset Dates Problem Status W/U Status Risk Notes Problem Acquired hammer toe of right foot (39027986158673 05) Other hammer toe(s) (acquired), right foot (M20.41) Active confirmed Problem Acquired hammer toe of left foot (94647273433030 03) Other hammer toe(s) (acquired), left foot (M20.42) Active confirmed Problem Non-pressure chronic ulcer of other part of left foot limited to breakdown of skin (L97.521) Active confirmed Problem Rheumatoid arthritis (66628031) Rheumatoid arthritis involving right foot with positive rheumatoid factor (M05.771) Active confirmed Problem Rheumatoid arthritis (66937649) Rheumatoid arthritis involving left foot with positive rheumatoid factor (M05.772) Active confirmed Plan Of Treatment No Information Insurance Providers Payer Name Payer Address Payer Phone Subscriber Number Group Number Insured Name Patient Relationship to Insured Coverage Start Date Coverage End Date Medicare National Govt Svcs Inc [address] [place] [phone] [id number] Estefania Escobar Self - patient is the insured [employer] Medicare [id number] [address] [address] [place] [address] [id number] Estefania Escobar Self - patient is the insured Medical (General) History Medical History History ICD Code Back,Hip,and Knee pain Cataracts Surgical History Surgery Date(Month/Year)
--- OUTSIDE RECORDS SUMMARY | 2025-02-22 09:36 | XMS_ITS | Patient Health Record ---
Author Organization [facility] Address [address] [place] [address] Care Team Providers Care Quality Control Tester Name Role Phone Sid Avila MD Primary Care Provider Unavailab Sid Sprague Unavailable [phone] Reason For Referral No Information Medications Medication [...] Problem Screening for malignant neoplasm of colon (431118492) Encounter for screening for malignant neoplasm of colon (Z12.11) Active confirmed Problem Esophageal stricture (12342436) Esophageal stricture (K22.2) Active confirmed Problem 33519016 Hiatal hernia (K44.9) Active confirmed Problem 208863675 GERD with esophagitis (K21.0) Active confirmed Problem 941434796 Esophageal ring (K22.2) Active confirmed Problem 19771399 Pharyngoesophage al dysphagia (R13.14) Active confirmed Problem Gastroesophageal reflux disease (008708451) GERD (gastroesophageal reflux disease) (K21.9) Active confirmed Problem Tubular adenoma (369382124) Tubular adenoma (D36.9) Active confirmed Problem Esophagitis, unspecified without bleeding (K20.90) Active confirmed Plan Of Treatment Future Test Test Name Order Date UPPER GI ENDOSCOPY BALLOOON DILATION OF ESOPH 05/18/2020 COLONOSCOPY 05/18/2020 Insurance Providers Payer Name Payer Address Payer Phone Subscriber Number Group Number Insured Name Patient Relationship to Insured Coverage Start Date Coverage End Date MEDICARE OF [place] [address] [place] [id number] JUAN ESCOBAR Self - patient is the insured [facility] SUPPLEMENTAL PLAN [address] [place] [address] [id number] JUAN ESCOBAR Self - patient is the insured Medical (General) History Medical History History ICD Code Negative screening colonoscoy 04-24-2010 Chronic gastritis Denies [place],DM,CVA,Lung disease,renal dise ase Urinary incontinence EGD in [...] removed Arthritis-? Rheumatoid---sees Dr. Lilly fisher at [facility] [place] Surgical History Surgery Date(Month/Year) Right hip replacement 2013 [facility]
== END 2025-02-21 09:11 | disposition home or self-care (01) ==
LOC: HO.HOSX 09:10
PROVIDERS: Visit Provider Physician Assistant
DX: M17.12 Unilateral primary osteoarthritis, left knee (principal); M25.562 Pain in left knee
CPT/HCPCS: 20610; 73562; 99202; J1010; J2003

== ENCOUNTER 2025-02-21 10:56 | Outpatient (AMB) | payer MEDICARE, SELFPAY ==
--- OUTSIDE RECORDS SUMMARY | 2024-12-23 07:00 | XMS_ITS ---
Author Organization Sid Avila III, MD Address [address] [place] [address] Care Team Providers Care Bingo Manager Name Role Phone Sid Avila Primary Care Provider [phone] Allergies Allergen (clinical drug ingredient) Drug/Non Drug Allergy documented on EMR Reaction Allergy Type Onset Date Status No Known Food Allergy Unknown Drug Allergy Active azithromycin Zithromax Z-Luis rash Drug Allergy Active REASON FOR VISIT Annual Exam Medications Medication SIG (Take, Route, Frequency, Duration) Notes Start Date End Date Status Tylenol PM Extra Strength 500-25 MG 1 tablet at bedtime as needed Orally Once a day 11/24/2023 Active Melatonin 10 MG as directed Orally 11/24/2023 Active sulfaSALAzine 500 MG 1 tablet Orally Onc e a day Active Exemestane 25 MG Oral Act gera Social History Tobacco Use: Social History Observation Description Date Details (start date - stop date) Former Smoker NA - NA Sex Assigned At : Social History Observation Description Sex Assigned At Female Tobacco Control (Standard) Question Answer Notes Tobacco use: Former smoker How long has it been since you last smoked? Grea ter than 10 years Additional Findings: Tobacco non-user Ex-cigaret te smoker AUDIT-C (Standard) Question Answer Notes Did you have a drink containing alcohol in the p ast year? No Points 0 Interpretation Negative Problems Problem Type SNOMED Code ICD Code Onset Dates Problem Status W/U Status Risk Notes Problem 224098615 Weight loss (R63.4) Active confirmed He has lost substantial weight in the last year for unclear reasons. She says her appetite is good is not eating as much fluid as she used to. Conference of blood work and an ultrasound of the abdomen have been ordered. She will be investigated carefully. 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 She says her appetite is good is not eating as much fluid as she used to. Conference of blood work and an ultrasound of the abdomen have been ordered. She will be investigated carefully. 12/23/2024 Edentulous (ICD-10 - K00.0) . Her dentures are not painful and she has no difficulty eating. 12/23/2024 Former smoker (ICD-10 - Z87.891) She is highly motivated not to smoke anymore. We have discussed strategies for maintenance of abstinence. 12/23/2024 Seropositive rheumatoid arthritis (ICD-10 - M05.9) She continues to see the ironing pleater and to take medication. She says her arthritis is improved with medication. She recently had a discussion about zoledronic acid. 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 Plan Of Treatment Medication Medication Name Sig Start Date Stop Date Notes Tylenol PM Extra Strength 50 0-25 MG 1 tablet at bedtime as needed Orally Once a day 11/24/2023 Melatonin 10 MG as directed Orally 11/24/2023 sulfaSALAzine 500 MG 1 tablet Orally Once a day Exemestane 25 MG Oral Pending Test Test Name Order Date PROFILE, FASTING (COMPREHENSIVE METABOLI C) 12/23/2024 CBC w DIFF 12/23/2024 Lipid Panel 12/23/2024 Next Appt Details Follow Up: 2 Months, Reason: OV Provider Name:Sid Avila, 03/02/2025 02:15:00 PM, [address] [place] [address] [address], [place], [address], Provider Name:Sid Avila, 12/27/2025 02:00:00 PM, [address] [place] [address] [address], [place], [address], Progress Notes * Estefania AGUILERA MDOB:1945 (79 yo F)Acc No.[id number]:12/23/2024 Progress Notes Patient: Estefania ZAZUETA Provider: Brad Avila MD :1945 A ge:79 Y S ex:Female Date:12/23/2024 Address:[address] [place] [address] SAMANTHA Truong [id number] Subjective: * Chief Complaints: * A nnual Exam * HPI: D epression Screening: She returns to the office at the age of 79 foor her annual physical examination. She says she feels healthy and well and has no new complaints. She is followed here for neutropenia, rheumatoid arthritis, menopause and a history of ductal carcinoma in situ of the right breast. Comprehensive blood work is available and was reviewed with her in detail. No changes in her regimen were necessary today. PHQ-9 L ittle interest or pleasure in doing things?More than half the days F eeling down, depressed, or hopeless N ot at all T rouble falling or staying asleep, or sleeping too much N early every day F eeling tired or having little energy N early every day P oor appetite or overeating N early every day F eeling bad about yourself or that you are a failure, or have let yourself or your family down S everal days T rouble concentrating on things, such as reading the newspaper or watching television N ot at all M oving or speaking so slowly that other people could have noticed; or the opposite, being so fidgety or restless that you have been moving around a lot more than usual N ot at all T houghts that you would be better off or of hurting yourself in some way N ot at all T otal Score 1 2 I nterpretation M oderate Depression C OVID-19 Screening: Questions H ave you had any new onset fever, chills, cough, congestion, sore throat, shortness of breath, muscle aches? N o S PRIYANKA Questions: SDOH Questions I n the past year have you been worried about losing your housing? N o I n the past year have you or any family members you live with been unable to get any of the following when it was really needed? Check all that apply: D ecline to answer F all Risk Screening: Fall History H ave you had any falls with injury in the past year? N o H ave you had two or more falls in the past year? N o F all Risk Assessment: N o falls in the past year * ROS: G eneral/Constitutional: pain F rom rheumatoid arthritis primarily in hands fingers shoulders hips and knees.. C hills d enies. F atigue a dmits. F ever d enies. E NT: Decreased hearing m ild. R espiratory: Cough d enies. C ardiovascular: Chest pain with exertion d enies. D yspnea on exertion?denies. S hortness of breath d enies. G astrointestinal: Constipation o ccasional. D ecreased appetite d enies. D iarrhea d enies. H eartburn d enies. N ausea d enies. R ectal bleeding d enies. V omiting d enies. H ematology: bruising d enies. p etechiae d enies. S wollen glands n one have been noted. G enitourinary: Frequent urination d enies. M usculoskeletal: Muscle aches d enies. P ainful joints F ingers handsaw shoulders hips and knees. S ciatica d enies. W eakness d enies. S kin: Itching d enies. R eloy d enies. S kin lesion(s)?denies. N eurologic: Difficulty speaking d enies. D izziness d enies.?Headache d enies. L ow back pain d enies. P sychiatric: Depressed mood d enies. * Medical History: * Surgical History: c holecystectomy Lumpectomy for DCIS upper outer quadrant right breast, [facility], Dr. Nahed Archer 07/31/2022Right hip arthroplasty 2014Esophageal dilatation, stricture * Hospitalization/Major Diagno stic Procedure: N o history * Family History: F ather: 69 yrs, lung cancer, tuberculosis, diagnosed with Cancer, HTN. M other: 67 yrs, myocardial infarction, diagnosed with HTN. S iblings: . 1 brother(s) , 6 sister(s) . 2 son(s) - healthy. . Two sisters have from lung and ovarian cancer. One has a cerebral aneurysm. One sister diagnosed with liver cancer in May 2012, being treated in [place], [place]. A niece had a double mastectomy. She is not aware of any family history of mental illness or addiction or substance abuse. * Social History: T obacco Use: T obacco Control (Standard) T obacco use: F ormer smoker H ow long has it been since you last smoked??Greater than 10 years A dditional Findings: Tobacco non-user E x-cigarette smoker D rugs/Alcohol: D rugs H ave you used drugs other than those for medical reasons in the past 12 months? N o D rug/Alcohol: A BETSY-C (Standard) D id you have a drink containing alcohol in the past year? N o P oints 0 I nterpretation N egative S he has been to [place] for many years. She was born in [place]. * Medications: T akingsulfaSALAzine 500 MG Tablet 1 tablet Orally Once a day Tylenol PM Extra Strength 500-25 MG Tablet 1 tablet at bedtime as needed Orally Once a day Melatonin 10 MG Capsule as directed Orally Taking sulfaSALAzine 500 MG Tablet 1 tablet Orally Once a day Taking Tylenol PM Extra Strength 500-25 MG Tablet 1 tablet at bedtime as needed Orally Once a day Taking Melatonin 10 MG Capsule as directed Orally DiscontinuedExemestane 25 MG Tablet Oral Medication List reviewed and reconciled with the patientDiscontinued Exemestane 25 MG Tablet Oral Medication List reviewed and reconciled with the patient * Allergies: Z ithromax Z-Luis: rash - AllergyNo Known Food Allergyno[Allergies Verified] Objective: * Vitals: H t: 66, Wt:119, BMI:19.21, BP:135/68, HR:68, Temp:97.5, Wt-k.98. * P ast Orders: Lab:Complete Blood Count Aut o Diff * Collection Date 12/18/2024 03/23/2024 11/18/2023 Collection Time 08:20 AM 08:37 AM 08:39 AM Order Date 12/18/2024 03/23/2024 11/18/2023 White Blood Count 6.1 (Ref Range: 4.8-10.8 X10*3/uL) 5.3 (Ref Range: 4.8-10.8 X10*3/uL) 5.7 (Ref Range: 4.8-10.8 X10*3/uL) Red Blood Count 3.80 L (Ref Range: 4.20-5.50 X10*6/uL) 4.05 L (Ref Range: 4.20-5.50 X10*6/uL) 4.29 (Ref Range: 4.20-5.50 X10*6/uL) Hemoglobin 11.9 L (Ref Range: 12.0-16.0 g/dl) 12.2 (Ref Range: 12.0-16.0 g/dl) 12.9 (Ref Range: 12.0-16.0 g/dl) Hematocrit 36.7 L (Ref Range: 37.0-47.0 %) 37.6 (Ref Range: 37.0-47.0 %) 40.3 (Ref Range: 37.0-47.0 %) Mean Corpuscular Volume 96.6 (Ref Range: 80.0-98.0 fL) 92.8 (Ref Range: 80.0-98.0 fL) 93.9 (Ref Range: 80.0-98.0 fL) Mean Corpuscular Hemoglobin 31.3 (Ref Range: 27.0-33.0 pg) 30.1 (Ref Range: 27.0-33.0 pg) 30.1 (Ref Range: 27.0-33.0 pg) Mean Corpuscular HGB Conc 32.4 (Ref Range: 31.0-35.0 g/dl) 32.4 (Ref Range: 31.0-35.0 g/dl) 32.0 (Ref Range: 31.0-35.0 g/dl) Red Cell Distribution Width 15.8 (Ref Range: 11.0-16.0 %) 13.0 (Ref Range: 11.0-16.0 %) 14.9 (Ref Range: 11.0-16.0 %) Platelet Count 286 (Ref Range: 160-400 X10*3/uL) 284 (Ref Range: 160-400 X10*3/uL) 273 (Ref Range: 160-400 X10*3/uL) Mean Platelet Volume 9.1 L (Ref Range: 9.4-12.3 fL) 9.3 L (Ref Range: 9.4-12.3 fL) 9.2 L (Ref Range: 9.4-12.3 fL) Neutrophils Percent Auto 68.7 (Ref Range: 45-73 %) 69.0 (Ref Range: 45-73 %) 69.1 (Ref Range: 45-73 %) Imm Gran Pct Auto 0.5 H (Ref Range: 0.0-0.4 %) 0.6 H (Ref Range: 0.0-0.4 %) 0.3 (Ref Range: 0.0-0.4 %) Lymphocytes Percent Auto 23.3 (Ref Range: 20-40 %) 21.2 (Ref Range: 20-40 %) 21.9 (Ref Range: 20-40 %) Monocytes Percent Auto 5.1 (Ref Range: 2-11 %) 5.9 (Ref Range: 2-11 %) 6.3 (Ref Range: 2-11 %) Eosinophils Percent Auto 1.7 (Ref Range: 0-4 %) 2.5 (Ref Range: 0-4 %) 1.7 (Ref Range: 0-4 %) Basophils Percent Auto 0.7 (Ref Range: 0-2 %) 0.8 (Ref Range: 0-2 %) 0.7 (Ref Range: 0-2 %) NRBC Pct Auto 0.0 (Ref Range: 0.0-0.2 /100WBC) 0.0 (Ref Range: 0.0-0.2 /100WBC) 0.0 (Ref Range: 0.0-0.2 /100WBC) Neutrophils Absolute Auto 4.2 (Ref Range: 2.0-8.3 x10*3/uL) 3.7 (Ref Range: 2.0-8.3 x10*3/uL) 4.0 (Ref Range: 2.0-8.3 x10*3/uL) Imm Gran Abs Auto 0.03 (Ref Range: 0.00-0.03 X10*3/uL) 0.03 (Ref Range: 0.00-0.03 X10*3/uL) 0.02 (Ref Range: 0.00-0.03 X10*3/uL) Lymphocytes Absolute Auto 1.4 (Ref Range: 1.2-4.9 X10*3/uL) 1.1 L (Ref Range: 1.2-4.9 X10*3/uL) 1.3 (Ref Range: 1.2-4.9 X10*3/uL) Monocytes Absolute Auto 0.3 (Ref Range: 0.1-1.2 X10*3/uL) 0.3 (Ref Range: 0.1-1.2 X10*3/uL) 0.4 (Ref Range: 0.1-1.2 X10*3/uL) Eosinophils Absolute Auto 0.1 (Ref Range: 0.0-0.4 X10*3/uL) 0.1 (Ref Range: 0.0-0.4 X10*3/uL) 0.1 (Ref Range: 0.0-0.4 X10*3/uL) Basophils Absolute Auto 0.0 (Ref Range: 0.0-0.2 X10*3/uL) 0.0 (Ref Range: 0.0-0.2 X10*3/uL) 0.0 (Ref Range: 0.0-0.2 X10*3/uL) NRBC Abs Auto 0.000 (Ref Range: 0.0-0.012 X10*3/uL) 0.000 (Ref Range: 0.0-0.012 X10*3/uL) 0.000 (Ref Range: 0.0-0.012 X10*3/uL) * Lab:Comprehensive Met. Panel * Collection Date 12/18/2024 11/18/2023 10/06/2023 Collection Time 08:20 AM 08:39 AM 08:29 AM Order Date 12/18/2024 11/18/2023 10/06/2023 Sodium 143 (Ref Range: 135-145 mmol/L) 142 (Ref Range: 135-145 mmol/L) 143 (Ref Range: 135-145 mmol/L) Bilirubin Total 0.7 (Ref Range: 0.0-1.0 mg/dL) 0.7 (Ref Range: 0.0-1.0 mg/dL) 0.7 (Ref Range: 0.0-1.0 mg/dL) Aspartate Amino Transferase 20 (Ref Range: 5-31 U/L) 19 (Ref Range: 5-31 U/L) 12 (Ref Range: 5-31 U/L) Alanine Aminotransferase 6 (Ref Range: 0-31 U/L) 20 (Ref Range: 0-31 U/L) 9 (Ref Range: 0-31 U/L) Total Protein 7.1 (Ref Range: 6.5-8.0 g/dL) 7.0 (Ref Range: 6.5-8.0 g/dL) 7.2 (Ref Range: 6.5-8.0 g/dL) Albumin Level 4.4 (Ref Range: 3.5-5.0 g/dL) 4.2 (Ref Range: 3.5-5.0 g/dL) 4.1 (Ref Range: 3.5-5.0 g/dL) Alkaline Phosphatase 56 (Ref Range: 39-117 U/L) 67 (Ref Range: 39-117 U/L) 72 (Ref Range: 39-117 U/L) Potassium 4.0 (Ref Range: 3.3-5.1 mmol/L) 4.1 (Ref Range: 3.3-5.1 mmol/L) 3.7 (Ref Range: 3.3-5.1 mmol/L) Chloride 109 H (Ref Range: 96-108 mmol/L) 107 (Ref Range: 96-108 mmol/L) 108 (Ref Range: 96-108 mmol/L) Carbon Dioxide 25 (Ref Range: 22-29 mmol/L) 27 (Ref Range: 22-29 mmol/L) 28 (Ref Range: 22-29 mmol/L) Anion Gap 13 (Ref Range: 12-20) 12 (Ref Range: 12-20) 11 L (Ref Range: 12-20) Blood Urea Nitrogen 14 (Ref Range: 9-16 mg/dL) 15 (Ref Range: 9-16 mg/dL) 14 (Ref Range: 9-16 mg/dL) Creatinine 0.60 (Ref Range: 0.5-1.4 mg/dL) 0.74 (Ref Range: 0.5-1.4 mg/dL) 0.71 (Ref Range: 0.5-1.4 mg/dL) Estimated Glomerular Filt Rate > 60 > 60 > 60 Glucose Random 104 (Ref Range: 60-115 mg/dL) 92 (Ref Range: 60-115 mg/dL) 98 (Ref Range: 60-115 mg/dL) Calcium 9.9 (Ref Range: 8.4-10.2 mg/dL) 9.9 (Ref Range: 8.4-10.2 mg/dL) 10.0 (Ref Range: 8.4-10.2 mg/dL) * Lab:Lipid Panel * Collection Date 12/18/2024 03/23/2024 11/18/2023 Collection Time 08:20 AM 08:37 AM 08:39 AM Order Date 12/18/2024 03/23/2024 11/18/2023 Triglycerides 114 (Ref Range: <150 mg/dL) 68 (Ref Range: <150 mg/dL) 67 (Ref Range: <150 mg/dL) Cholesterol 145 (Ref Range: <200 mg/dL) 176 (Ref Range: <200 mg/dL) 205 H (Ref Range: <200 mg/dL) LDL Cholesterol Calculated 74 (Ref Range: <100 mg/dL) 110 H (Ref Range: <100 mg/dL) 130 H (Ref Range: <100 mg/dL) HDL Cholesterol 49 (Ref Range: >40 mg/dL) 53 (Ref Range: >40 mg/dL) 62 (Ref Range: >40 mg/dL) * Examination: G eneral Examination: GENERAL APPEARANCE: p leasant, well nourished, well developed, in no acute distress, calm and relaxed, underweight, elderly woman. HEAD: a traumatic, normocephalic. EYES: e nathaniel, perrla, anicteric, conjugate. EARS: N ormal anatomy with mild hearing loss. NOSE: s eptum intact. ORAL CAVITY: n ormal, unremarkable, edentulous. NECK/THYROID: n o jugular venous distention, no carotid bruit, thyroid normal. LYMPH NODES: n o enlarged lymph nodes,spleen normal. SKIN: n o suspicious lesions, anicteric. HEART: n o clicks, gallops, murmurs, or rubs, regular rhythm, S1, S2 normal, no s3, or vascular bruits. LUNGS: c lear to auscultation . BREASTS: no masses palpable bilaterally. ABDOMEN: b owel sounds normal, no ascites, no organomegaly, no mass, Slightly underweight. RECTAL EXAM: n ot examined. MUSCULOSKELETAL: e xtremities unremarkable, no clubbing, cyanosis or edema. PERIPHERAL PULSES: n ormal. NEUROLOGIC: a lert and oriented, cranial nerves 2-12 grossly intact, deep tendon reflexes 2+ symmetrical, motor strength normal upper and lower extremities, sensory exam intact. PSYCH: a lert, oriented. Assessment: * Assessment: 1. W eight loss - R63.4 (Primary) N otes :He has lost substantial weight in the last year for unclear reasons. She says her appetite is good is not eating as much fluid as she used to. Conference of blood work and an ultrasound of the abdomen have been ordered. She will be investigated carefully. 2 . E dentulous - K00.0 N otes :. Her dentures are not painful and she has no difficulty eating. 3 . F ormer smoker - Z87.891 N otes :She is highly motivated not to smoke anymore. We have discussed strategies for maintenance of abstinence. 4 . S eropositive rheumatoid arthritis - M05.9 N otes :She continues to see the ironing pleater and to take medication. She says her arthritis is improved with medication. She recently had a discussion about zoledronic acid. 5 . 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 Plan: * Treatment: 2. O thers Continue sulfaSALAzine Tablet, 500 MG, 1 tablet, Orally, Once a day; C ontinue Exemestane Tablet, 25 MG, Oral; C ontinue Tylenol PM Extra Strength Tablet, 500-25 MG, 1 tablet at bedtime as needed, Orally, Once a day; C ontinue Melatonin Capsule, 10 MG, as directed, Orally. * Procedure Codes: * Preventive Medicine: Counseling: C are goal follow-up plan: Counseling for abnormal BMI given Y es Below Normal BMI Follow-up D ietary education for weight gain, Dietary management education, guidance, and counseling, Feeding regime, Lifestyle education regarding diet, Nutrition / feeding management, Prescribed diet education, Special diet education, Intervention, Order not done: Medical or Other reason not done S moking/Tobacco Use Patient counseled on the dangers of tobacco use and urged to quit. 0 12/23/2024 * Follow Up: 2 Months (Reason: OV) * Images: * Sign off status: Completed true * Provider: Brad Avila MD Date: 0 12/23/2024 Generated for Lucio grace/Carlitos/Popitting on: 0 02/21/2025 12:17 PM EDT History and Physical Notes * HPI (History of Present Illness) Category Sub-Category Detail Notes Depression Screening PHQ-9 Little inte rest or pleasure in doing things: More than half the days Feeling down, depressed, or hopeless: No t at all Trouble falling or staying asleep, or sl eeping too much: Nearly every day Feeling tired or having little energy: N early every day Poor appetite or overeating: Nearly ever y day Feeling bad about yourself o r that you are a failure, or have let yourself or your family down: Several days Trouble concentrating on thi ngs, such as reading the newspaper or watching television: Not at all Moving or speaking so slowly that other people could have noticed; or the opposite, being so fidgety or restless that you have been moving around a lot more than usual: Not at all Thoughts that you would be b deepa off or of hurting yourself in some way: Not at all Total Score: 12 Interpretation: Moderate Depression Fall Risk Screening Fall History Have you had any falls with injury in the past year?: No Have you had two or more falls in the year?: No Fall Risk Assessment:: No falls in the year COVID-19 Screening Questions Have you had any new onset fever, chills, cough, congestion, sore throat, shortness of breath, muscle aches?: No SDOH Questions SDOH Questions In the past year have you been worried about losing your housing?: No In the past year have you or any family members you live with been unable to get any of the following when it was really needed? Check all that apply:: Decline to answer Examination Category Sub-Category Detail Notes General Examination GENERAL APPEARANCE: pleasant , well nourished, well developed, in no acute distress, calm and relaxed, underweight, elderly woman HEAD: atraumatic, normocep halic EYES: eomi, perrla, anicte sathya, conjugate EARS: Normal anatomy with mild hearing loss NOSE: septum intact NECK/THYROID: no jugular venous di stention, no carotid bruit, thyroid normal HEART: no clicks, gallops, murmurs, or rubs, regular rhythm, S1, S2 normal, no s3, or vascular bruits LUNGS: clear to auscultatio n ABDOMEN: bowel sounds normal, no ascites, no organomegaly, no mass, Slightly underweight NEUROLOGIC: alert and oriented, cranial nerves 2-12 grossly intact, deep tendon reflexes 2+ symmetrical, motor strength normal upper and lower extremities, sensory exam intact SKIN: no suspicious lesion s, anicteric PERIPHERAL PULSES: normal BREASTS: no masses palpable b ilaterally MUSCULOSKELETAL: extremities unremark able, no clubbing, cyanosis or edema LYMPH NODES: no enlarged lymph no melissa,spleen normal RECTAL EXAM: not examined PSYCH: alert, oriented ORAL CAVITY: normal, unremarkable , edentulous
--- NOTE | 2025-02-21 11:07 | MHC.OFFVIS ---
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 Patient had her knee aspirated and injection on 06/12/23 with Rheumatology. Patient states that her last injection gave her relief and she would like to try that injection today. She states that her pain is on the medial aspect of the knee. Patient notices that her pain is worse when she is laying and she is walking. 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 Sheppard is a 79-year-old female who presents to the office today for evaluation of left knee pain. She denies any injury or trauma to the area. She reports that she has had a cortisone injection in the past with rheumatology roughly 2 years ago. She reports that she had great relief with this and would like to repeat injection while in the office today. [facility] Medical History (Updated 02/21/25 @ 14:25 by Zoey Sanabria PA-C) Pain and swelling of right knee Long-term use of immunosuppressant medication Breast cancer, right (~07/2022) Osteopenia after menopause Seropositive rheumatoid arthritis Cholecystectomy planned Urinary bladder incontinence Chronic gastritis Normal colonoscopy GERD (gastroesophageal reflux disease) Erosive esophagitis Dysphagia Rheumatoid arthritis Surgical History History of esophagogastroduodenoscopy (EGD) S/P hip replacement Social History Household Members: Spouse Alcohol intake: never Patient Tobacco Use Status: Former Tobacco user Tobacco use type: Cigarette Years Smoked: quit 11 years ago e-Cigarette/Vaping Use: Never Used Current occupational status: retired Current occupation: [employer] Review of Systems Const All systems reviewed & are unremarkable except as noted in HPI and below Physical Exam Vital Signs: BMI result Body Mass Index 17.8 Const General: cooperative, healthy appearing and no acute distress Resp Effort & Inspection: normal respiratory effort and able to speak in complete sentences Extrem Other: Left knee normal to inspection. No ecchymosis erythema or joint effusion. Tenderness to palpation over medial and lateral joint lines. Crepitus felt with range of motion. Range of motion is 0-100 degrees. NVI. Office Procedures AMB Joint Injection/Aspiration Joint Injection/Aspiration Primary Site: left knee Injected: 80 mg of, DepoMedrol, with 8 mL of (2% plain lidocaine) and in the joint Approach Used: anterolateral Procedure: The patient tolerated the procedure well, but had some pain with the injection and there was some relief with the local anesthesia Coding - Large joint Procedure code (CPT) selection complete Assessment & Plan Assessment & Plan (1) Osteoarthritis of left knee: Code(s): M17.12 - Unilateral primary osteoarthritis, left knee Category: Medical Plan Ms. Sheppard is a 79-year-old female who presents to the office today for evaluation of left knee pain. She denies any injury or trauma to the area. She reports that she has had a cortisone injection in the past with rheumatology roughly 2 years ago. She reports that she had great relief with this and would like to repeat injection while in the office today. The patient was offered a cortisone injection in the left knee with 80 mg of DepoMedrol. The patient was explained the risks, benefits, and alternatives to receiving this injection. After receiving consent for the injection, the patient had the procedure done while in the office today. The patient tolerated the procedure well with no complications. Due to the patient?s history of diabetes, they were instructed to monitor their blood glucose level. The patient was informed that they could see a rise in their numbers and if the numbers became too high, they were instructed to call their PCP. The patient was also informed that they could have facial flushing as a side effect of the injection, but this will pass. Follow-up will be PRN, or sooner if needed X-rays of the left knee which were obtained while in the office today and were reviewed by me, Zoey Sanabria PA-C, revealed significant osteoarthritis. No acute fracture or dislocation. Orders: Orders XR knee LT 3V Today M25.569 - Pain in unspecified knee Coding Level of Care Code New Pt Level 3 (88384) Diagnoses Osteoarthritis of left knee M17.12 CPT Codes Coding - Large joint: 47650 - Large joint ([id number])
[2025-02-21 11:10] VITALS: BMI 17.8
--- OUTSIDE RECORDS SUMMARY | 2025-02-21 12:17 | XMS_ITS | Patient Health Record ---
Author Organization [facility] Address [address] [place] [address] Care Team Providers Care Sales Support Specialist Name Role Phone Sid Avila MD Primary Care Provider Unavailab Sid Sprague Unavailable [phone] Reason For Referral No Information Medications Medication SIG (Take, Route, Fr equency, Duration) Notes Start Date End Date Status Acetaminophen 500 MG 1 capsule as needed Orally every 6 hrs Active Omeprazole 20 MG Take 1 capsule by mo ut once daily in the morning for 30 Acti ve sulfaSALAzine 500 MG TAKE 1 TABLET BY MO UTH ONCE DAILY Oral for 30 Active Immunizations Vaccine Route Administration Date Status Comme nts Influenza Unknown 03/28/2015 Administered Influenza Unknown 03/28/2020 Administered Problems Problem Type SNOMED Code ICD Code Onset Dates Problem Status W/U Status Risk Notes Problem Screening for malignant neoplasm of colon (208540886) Encounter for screening for malignant neoplasm of colon (Z12.11) Active confirmed Problem Esophageal stricture (23639148) Esophageal stricture (K22.2) Active confirmed Problem 46691435 Hiatal hernia (K44.9) Active confirmed Problem 048071614 GERD with esopha gitis (K21.0) Active confirmed Problem 736809253 Esophageal ring (K22.2) Active confirmed Problem 14313890 Pharyngoesophage al dysphagia (R13.14) Active confirmed Problem GERD (gastroesophageal reflux disease) (K21.9) Active confirmed Problem Tubular adenoma (564854031) Tubular adenoma (D36.9) Active confirmed Problem Esophagitis (disorder) (19256213) Esophagitis, unspecified without bleeding (K20.90) Active confirmed Plan Of Treatment Future Test Test Name Order Date UPPER GI ENDOSCOPY BALLOOON DILATION OF ESOPH 05/18/2020 COLONOSCOPY 05/18/2020 Insurance Providers Payer Name Payer Address Payer Phone Subscriber Number Group Number Insured Name Patient Relationship to Insured Coverage Start Date Coverage End Date MEDICARE OF [place] [address] [place] [address] [id number] JUAN ESCOBAR Self - patient is the insured [facility] SUPPLEMENTAL PLAN [address] [place] [address] [phone] [id number] JUAN ESCOBAR Self - patient is the insured Medical (General) History Medical History History ICD Code Negative screening colonoscoy 04-24-2010 Chronic gastritis Denies [place],DM,CVA,Lung disease,renal dise ase Urinary incontinence EGD in 07/2015 and 08/2015--fo od bolus impaction in 07/2015 and ballon dilation of a distal esophageal stricture in 08/2015--noted to have erosive esophagitis and moderate-sized HH GERD and esophageal strictur e--EGD in May of 2020 revealed a mild distal esophageal stricture dilated with an 18 mm and 19 mm balloon, small hiatal hernia, and mild gastritis--gastric biopsies did reveal H. pylori but this was not treated, and esophageal biopsies were negative for Ferreira's esophagus Colonoscopy in May 020 revealed a small tubular adenoma that was removed Arthritis-? Rheumatoid---[place] Lilly [place] [facility] Surgical History Surgery Date(Month/Year) Right hip replacement 2013 [facility]
== END 2025-02-21 11:40 | disposition home or self-care (01) ==
LOC: HO.HOS 10:57
PROVIDERS: PCP Internal Medicine Medical Oncology; Visit Provider Physician Assistant
DX: M17.12 Unilateral primary osteoarthritis, left knee (principal); E11.9 Type 2 diabetes mellitus without complications
CPT/HCPCS: 20610; 99203

== ENCOUNTER → 2025-02-21 10:58 | Outpatient (BNV) | payer MEDICARE, SELFPAY | PROVIDERS: Visit Provider Radiology Diagnostic Radiology | DX: M17.12 Unilateral primary osteoarthritis, left knee (principal) | CPT/HCPCS: 73562 ==

== ENCOUNTER 2025-02-28 08:06 | Outpatient (REF) | payer MEDICARE, SELFPAY ==
--- OUTSIDE RECORDS SUMMARY | 2024-12-23 07:00 | XMS_ITS ---
Author Organization Sid Avila III, MD Address [address] [place] [address] Care Team Providers Care Copy Machine Operator Name Role Phone Sid Avila Primary Care [...] Problem Status W/U Status Risk Notes Problem [id number] Weight loss (R63.4) Active confirmed He has [...] Date Provider Diagnosis Sid Avila III, MD [address] [place] [address] [place] [address] 12/23/2024 Sid Avila Weight loss R63.4 ; [...] - M05.9) She continues to see the client advocate and to take medication. She says her [...] OV Provider Name:Sid Avila, 03/02/2025 02:15:00 PM, [address] [place] [address] [address], [place], [address], Provider Name:Sid Avila, 12/27/2025 02:00:00 PM, [address] [place] [address] [address], [place], [address], Progress Notes * Estefania AGUILERA MDOB:1945 (79 yo F)Acc No.[id number]:12/23/2024 Progress Notes Patient: Estefania ZAZUETA Provider: Brad Avila MD :1945 A ge:79 Y S ex:Female Date:12/23/2024 Address:[address] [place] [address] SAMANTHA Truong [id number] Subjective: * Chief Complaints: * A nnual [...] for DCIS upper outer quadrant right breast, [facility], Dr. Nahed Archer 07/31/2022Right hip arthroplasty [...] cancer in May 2012, being treated in [place], [place]. A niece had a double mastectomy. [...] for many years. She was born in [place]. * Medications: T akingsulfaSALAzine 500 MG Tablet [...] N otes :She continues to see the client advocate and to take medication. She says her [...] 12/23/2024 Generated for Lucio grace/Carlitos/Popitting on: 0 02/28/2025 08:11 AM EDT History and Physical Notes * [...]
--- OUTSIDE RECORDS SUMMARY | 2025-02-28 08:12 | XMS_ITS | Patient Health Record ---
Author Organization [facility] Address [address] [place] [address] Care Team Providers Care Vacuum Spindle Sander Name Role Phone Sid Avila MD Primary Care Provider Unavailab Sid Sprague Unavailable [phone] Reason For Referral No Information Medications Medication [...] Problem Screening for malignant neoplasm of colon (018806470) Encounter for screening for malignant neoplasm of colon (Z12.11) Active confirmed Problem Esophageal stricture (16639800) Esophageal stricture (K22.2) Active confirmed Problem 96774552 Hiatal hernia (K44.9) Active confirmed Problem 004302050 GERD with esophagitis (K21.0) Active confirmed Problem 499738034 Esophageal ring (K22.2) Active confirmed Problem 80634269 Pharyngoesophage al dysphagia (R13.14) Active confirmed Problem Gastroesophageal reflux disease (028209210) GERD (gastroesophageal reflux disease) (K21.9) Active confirmed Problem Tubular adenoma (770433446) Tubular adenoma (D36.9) Active confirmed Problem Esophagitis (disorder) (56812081) Esophagitis, unspecified without bleeding (K20.90) Active confirmed Plan Of Treatment Future Test Test Name Order Date UPPER GI ENDOSCOPY BALLOOON DILATION OF ESOPH 05/18/2020 COLONOSCOPY 05/18/2020 Insurance Providers Payer Name Payer Address Payer Phone Subscriber Number Group Number Insured Name Patient Relationship to Insured Coverage Start Date Coverage End Date MEDICARE OF [place] [address] [place] [id number] ESCOBARJUAN Self - patient is the insured [facility] SUPPLEMENTAL PLAN [address] [place], [place] [address] [id number] JUAN ESCOBAR Self - patient is the insured Medical (General) History Medical History History ICD Code Negative screening colonoscoy 04-24-2010 Chronic gastritis Denies [place],DM,CVA,Lung disease,renal dise ase Urinary incontinence EGD in [...] removed Arthritis-? Rheumatoid---sees Dr. Lilly fisher at [facility] Surgical History Surgery Date(Month/Year) Right hip replacement 2013 [facility]
--- OUTSIDE RECORDS SUMMARY | 2025-02-28 08:12 | XMS_ITS | Patient Health Record ---
Author Organization [facility] Jeanettegabi Sinha Address [address] [place] [address] Care Team Providers Care Stream Control Officer Name Role Phone Sid Avila MD Primary Care Provider Francisco HartAlbina Unavailable [phone] Allergies No Known Allergies Reason For Referral [...] Problem Acquired hammer toe of right foot (40814514452909 05) Other hammer toe(s) (acquired), right foot (M20.41) Active confirmed Problem Acquired hammer toe of left foot (00707374143337 03) Other hammer toe(s) (acquired), left foot (M20.42) Active confirmed Problem Non-pressure chronic ulcer of other part of left foot limited to breakdown of skin (L97.521) Active confirmed Problem Rheumatoid arthritis (32276472) Rheumatoid arthritis involving right foot with positive rheumatoid factor (M05.771) Active confirmed Problem Rheumatoid arthritis (06483185) Rheumatoid arthritis involving left foot with positive rheumatoid factor (M05.772) Active confirmed Plan Of Treatment No Information Insurance Providers Payer Name Payer Address Payer Phone Subscriber Number Group Number Insured Name Patient Relationship to Insured Coverage Start Date Coverage End Date Medicare National Govt Svcs Inc [address] [place] [phone] [id number] Estefania Escobar Self - patient is the insured [employer] Medicare [id number] [address] [address] [place] [address] [id number] Estefania Escobar Self - patient is the insured Medical (General) History Medical History History ICD Code Back,Hip,and Knee pain Cataracts Surgical History Surgery Date(Month/Year)
[2025-02-28 10:45] LABS: MANUAL DIFF FLAG NO
[2025-02-28 10:51] LABS: Hematocrit 37.5 % (37.0-47.0); Hemoglobin 11.9 g/dl (12.0-16.0); Imm Gran Abs Auto 0.03 X10*3/uL (0.00-0.03); Imm Gran Pct Auto 0.4 % (0.0-0.4); Lymphocytes Absolute Auto 1.9 X10*3/uL (1.2-4.9); Mean Corpuscular HGB Conc 31.7 g/dl (31.0-35.0); Mean Corpuscular Hemoglobin 31.3 pg (27.0-33.0); Mean Corpuscular Volume 98.7 fL (80.0-98.0); NRBC Abs Auto 0.020 X10*3/uL (0.0-0.012); NRBC Pct Auto 0.3 /100WBC (0.0-0.2); Platelet Count 274 X10*3/uL (160-400); Red Blood Count 3.80 X10*6/uL (4.20-5.50); White Blood Count 7.4 X10*3/uL (4.8-10.8)
[2025-02-28 11:08] LABS: Alanine Aminotransferase 26 U/L (0-31); Albumin Level 4.6 g/dL (3.5-5.0); Alkaline Phosphatase 62 U/L (39-117); Anion Gap 12 (12-20); Aspartate Amino Transferase 21 U/L (5-31); Blood Urea Nitrogen 27 mg/dL (9-16); Calcium 9.5 mg/dL (8.4-10.2); Carbon Dioxide 26 mmol/L (22-29); Chloride 107 mmol/L (96-108); Cholesterol 176 mg/dL (<200); Estimated Glomerular Filt Rate > 60; HDL Cholesterol 63 mg/dL (>40); Potassium 4.0 mmol/L (3.3-5.1); Sodium 141 mmol/L (135-145); Total Protein 7.1 g/dL (6.5-8.0); Triglycerides 85 mg/dL (<150)
== END 2025-02-28 08:07 | disposition home or self-care (01) ==
LOC: HO.10HDL 08:06
PROVIDERS: Visit Provider Internal Medicine Medical Oncology
DX: Z00.00 Encounter for general adult medical examination without abnormal findings (principal); R63.4 Abnormal weight loss
CPT/HCPCS: 36415; 80053; 80061; 85025

== ENCOUNTER 2025-03-02 14:52 | Outpatient (REF) | payer MEDICARE, SELFPAY ==
--- OUTSIDE RECORDS SUMMARY | 2024-12-23 07:00 | XMS_ITS ---
Author Organization Sid Avila III, MD Address [address] [place] [address] Care Team Providers Care Contribution Solicitor Name Role Phone Sid Avila Primary Care Provider Allergies Allergen (clinical drug ingredient) Drug/Non Drug [...] Problem Status W/U Status Risk Notes Problem [id number] Weight loss (R63.4) Active confirmed He has [...] Date Provider Diagnosis Sid Avila III, MD [address] [place] [address] [place] [address] 12/23/2024 Sid Avila Weight loss R63.4 ; [...] - M05.9) She continues to see the waitstaff and to take medication. She says her [...] 2 Months, Reason: OV Provider Name:Sid Avila, 03/16/2025 11:00:00 AM, [address] [place] [address] [address], [place], [address], Provider Name:Sid Avila, 12/27/2025 02:00:00 PM, [address] [place] [address] [address], [place], [address], Progress Notes * Estefania AGUILERA MDOB:1945 (79 yo F)Acc No.[id number]:12/23/2024 Progress Notes Patient: Estefania ZAZUETA Provider: Brad Avila MD :1945 A ge:79 Y S ex:Female Date:12/23/2024 Address:[address] [place] [address] SAMANTHA Truong [id number] Subjective: * Chief Complaints: * A nnual [...] for DCIS upper outer quadrant right breast, [facility], Dr. Nahed Archer 07/31/2022Right hip arthroplasty 2014Esophageal [...] cancer in May 2012, being treated in [place], [place]. A niece had a double mastectomy. [...] for many years. She was born in [place]. * Medications: T akingsulfaSALAzine 500 MG Tablet [...] N otes :She continues to see the waitstaff and to take medication. She says her [...] Avila MD Date: 0 12/23/2024 Generated for Luico grace/Carlitos/Popitting on: 0 03/02/2025 03:20 PM EDT History and Physical Notes * [...]
--- NOTE | ~2025-03-02 | XR_ITS ---
EXAMINATION: XR CHEST CLINICAL INFORMATION: weight loss, former smoker COMPARISON: None available. TECHNIQUE: 2 views of the chest were obtained. FINDINGS: Lungs are hyperinflated but clear of acute process. The heart size and pulmonary vascularity is normal. There is moderate spondylosis of dorsal spine. No aggressive lytic or sclerotic process seen. XR/XR chest 2V IMPRESSION: Hyperinflated lungs without acute process. Electronically signed by: Daniel Streeter MD 03/03/2025 07:19 AM EDT
[2025-03-02 15:07] LABS: MANUAL DIFF FLAG NO
--- OUTSIDE RECORDS SUMMARY | 2025-03-02 15:20 | XMS_ITS | Patient Health Record ---
Author Organization [facility] Jeanettegabi Sinha Address [address] [place] [address] Care Team Providers Care Technical Document Writer Name Role Phone Sid Avila MD Primary Care Provider Francisco HartAlbina Unavailable [phone] Allergies No Known Allergies Reason For Referral [...] Problem Acquired hammer toe of right foot (46286681973825 05) Other hammer toe(s) (acquired), right foot (M20.41) Active confirmed Problem Acquired hammer toe of left foot (83944828584308 03) Other hammer toe(s) (acquired), left foot (M20.42) Active confirmed Problem Non-pressure chronic ulcer of other part of left foot limited to breakdown of skin (L97.521) Active confirmed Problem Rheumatoid arthritis (03048690) Rheumatoid arthritis involving right foot with positive rheumatoid factor (M05.771) Active confirmed Problem Rheumatoid arthritis (58858865) Rheumatoid arthritis involving left foot with positive rheumatoid factor (M05.772) Active confirmed Plan Of Treatment No Information Insurance Providers Payer Name Payer Address Payer Phone Subscriber Number Group Number Insured Name Patient Relationship to Insured Coverage Start Date Coverage End Date Medicare National Govt Svcs Inc [address] [place] [phone] [id number] Estefania Escobar Self - patient is the insured [employer] Medicare [id number] [address] [address] [place] [address] [phone] [id number] Estefania Escobar Self - patient is the insured Medical (General) History Medical History History ICD Code Back,Hip,and Knee pain Cataracts Surgical History Surgery Date(Month/Year)
--- OUTSIDE RECORDS SUMMARY | 2025-03-02 15:20 | XMS_ITS | Patient Health Record ---
Author Organization [facility] Address [address] [place] [address] Care Team Providers Care Brake Coupler Dinkey Name Role Phone Sid Avila MD Primary Care Provider Unavailab Sid Sprague Unavailable [phone] Reason For Referral No Information Medications Medication [...] Problem Screening for malignant neoplasm of colon (573610327) Encounter for screening for malignant neoplasm of colon (Z12.11) Active confirmed Problem Esophageal stricture (55520894) Esophageal stricture (K22.2) Active confirmed Problem 62682006 Hiatal hernia (K44.9) Active confirmed Problem 190633308 GERD with esophagitis (K21.0) Active confirmed Problem 595997928 Esophageal ring (K22.2) Active confirmed Problem 96957297 Pharyngoesophage al dysphagia (R13.14) Active confirmed Problem Gastroesophageal reflux disease (294729408) GERD (gastroesophageal reflux disease) (K21.9) Active confirmed Problem Tubular adenoma (845993961) Tubular adenoma (D36.9) Active confirmed Problem Esophagitis (disorder) (49653096) Esophagitis, unspecified without bleeding (K20.90) Active confirmed Plan Of Treatment Future Test Test Name Order Date UPPER GI ENDOSCOPY BALLOOON DILATION OF ESOPH 05/18/2020 COLONOSCOPY 05/18/2020 Insurance Providers Payer Name Payer Address Payer Phone Subscriber Number Group Number Insured Name Patient Relationship to Insured Coverage Start Date Coverage End Date [employer] [place] [address] [place] [id number] ESCOBARJUAN Self - patient is the insured [facility] [employer] [address] [place], [place] [id number] JUAN ESCOBAR Self - patient is the insured Medical (General) History Medical History History ICD Code Negative screening colonoscoy 04-24-2010 Chronic gastritis Denies IA,DM,CVA,Lung disease,renal dise ase Urinary incontinence EGD in [...] removed Arthritis-? Rheumatoid---[place]. Lilly [place] [facility] [place] History Surgery Date(Month/Year) Right hip replacement 2013 [facility]
[2025-03-02 15:51] LABS: Hematocrit 37.6 % (37.0-47.0); Hemoglobin 11.9 g/dl (12.0-16.0); Imm Gran Abs Auto 0.05 X10*3/uL (0.00-0.03); Imm Gran Pct Auto 0.5 % (0.0-0.4); Lymphocytes Absolute Auto 1.9 X10*3/uL (1.2-4.9); Mean Corpuscular HGB Conc 31.6 g/dl (31.0-35.0); Mean Corpuscular Hemoglobin 31.2 pg (27.0-33.0); Mean Corpuscular Volume 98.7 fL (80.0-98.0); NRBC Abs Auto 0.000 X10*3/uL (0.0-0.012); NRBC Pct Auto 0.0 /100WBC (0.0-0.2); Platelet Count 295 X10*3/uL (160-400); Red Blood Count 3.81 X10*6/uL (4.20-5.50); White Blood Count 9.6 X10*3/uL (4.8-10.8)
[2025-03-02 16:17] LABS: Prealbumin 37.0 mg/dL (20-40)
[2025-03-02 16:25] LABS: Alanine Aminotransferase 26 U/L (0-31); Albumin Level 4.8 g/dL (3.5-5.0); Alkaline Phosphatase 58 U/L (39-117); Anion Gap 12 (12-20); Aspartate Amino Transferase 23 U/L (5-31); Blood Urea Nitrogen 33 mg/dL (9-16); Calcium 10.0 mg/dL (8.4-10.2); Carbon Dioxide 25 mmol/L (22-29); Chloride 107 mmol/L (96-108); Estimated Glomerular Filt Rate > 60; Lipase 51 U/L (8-78); Potassium 4.2 mmol/L (3.3-5.1); Sodium 140 mmol/L (135-145); Total Protein 7.3 g/dL (6.5-8.0)
[2025-03-02 16:39] LABS: Free T4 (Free Thyroxine) 1.18 ng/dL (0.71-1.85); Thyroid Stimulating Hormone 0.26 uIU/mL (0.32-4.0)
== END 2025-03-02 14:53 | disposition home or self-care (01) ==
LOC: HO.LAB 14:52
PROVIDERS: Visit Provider Internal Medicine Medical Oncology
DX: R63.4 Abnormal weight loss (principal); D70.9 Neutropenia, unspecified; D05.11 Intraductal carcinoma in situ of right breast; Z87.891 Personal history of nicotine dependence
CPT/HCPCS: 36415; 71046; 80053; 83690; 84134; 84439; 84443; 85025; 85652

== ENCOUNTER → 2025-03-02 15:15 | Outpatient (BNV) | payer MEDICARE, SELFPAY | PROVIDERS: Visit Provider Radiology Diagnostic Radiology | DX: R07.9 Chest pain, unspecified (principal) | CPT/HCPCS: 71046 ==